=== PATIENT | female | born 1935 | race Caucasian/White ===

== ENCOUNTER 2021-06-03 02:43 | Inpatient (IN) | payer MEDICARE, OTHER ==
[~2021-06-03] VITALS: Ht 167.6 cm; Wt 54.4 kg
--- NOTE | 2021-06-03 02:54 | NUR ---
pt in room 5a came in by ra for fall at detention. Dr. Kebede at bedside for MSE.
[2021-06-03] MEDS ORDERED: TDAP DIPH,PERTUSS,TET VAC/PF 0.5 ML DISP.SYRIN IM ONE ×2 (03:15→03:18)
--- NOTE | 2021-06-03 04:02 | NUR ---
pt returned from cat scan.
--- NOTE | 2021-06-03 04:18 | NUR ---
Daughter of patient Kerri Fonseca called to check on status. Update given.
[2021-06-03 05:32] LABS: MEAN CORPUSCULAR HEMOGLOBIN 24.9 uug (24.7-32.8); MEAN CORPUSCULAR VOLUME 78.8 fL (75.5-95.3); PLATELET COUNT (AUTO) 203 K/uL (179-408)
[2021-06-03 05:54] LABS: HEMATOCRIT 20.1 % (31.2-41.9)
[2021-06-03 06:09] LABS: CREATININE 1.1 mg/dL (0.6-1.3); POTASSIUM 5.2 mmol/L (3.5-5.1)
[2021-06-03 06:15] LABS: BILIRUBIN,DIRECT 0.1 mg/dL (0.0-0.2); BILIRUBIN,TOTAL 0.4 mg/dL (0.2-1.0); TOTAL PROTEIN, SERUM 6.5 g/dL (6.4-8.2)
[2021-06-03 06:19] LABS: *OCCULT BLOOD STOOL NEGATIVE (NEGATIVE)
--- NOTE | 2021-06-03 06:59 | NUR ---
Call to Kerri Fonseca pt's daughter to give update. left vm.
--- NOTE | 2021-06-03 07:20 | NUR ---
pt's daughter talked to Dr. Diaz over the phone regarding pt plan of care including blood transfusion.
--- NOTE | 2021-06-03 08:00 | NUR ---
pt wheezing notified.
[2021-06-03] MEDS ORDERED: ALBUTEROL SULFATE 2.5 MG/3 ML NEBU NEB ONE (08:15)
[2021-06-03] MEDS ORDERED: METO25TA3 PO (08:36)
[2021-06-03] MEDS ORDERED: TELM80TA2 PO (08:36)
[2021-06-03] MEDS ORDERED: DOCU100C36 PO (08:36)
[2021-06-03] MEDS ORDERED: SENN-261 PO (08:36)
[2021-06-03] MEDS ORDERED: SERT50TA PO (08:36)
[2021-06-03] MEDS ORDERED: FURO-151 PO (08:36)
[2021-06-03] MEDS ORDERED: ASPI81TA31 PO (08:36)
[2021-06-03] MEDS ORDERED: SPIR25TA6 PO (08:36)
[2021-06-03] MEDS ORDERED: FERR325T28 PO (08:36)
[2021-06-03] MEDS ORDERED: FOLI1TAB94 PO (08:36)
[2021-06-03] MEDS ORDERED: PANT40TA49 PO (08:36)
[2021-06-03] MEDS ORDERED: ALBUTEROL SULFATE 2.5 MG/3 ML NEBU ONE (08:56)
--- NOTE | 2021-06-03 08:56 | NUR ---
am hygiene/comfort measure provided. break fast tray at bedside. pt eating with out difficulty.
--- NOTE | 2021-06-03 08:59 | NUR ---
pt accepted to tele, no bed available at this time. pt in er transition status.
[2021-06-03] MEDS ORDERED: NEOMY/BACITRA/POLYMYXIN B OINT UD PACKET TP ONE (09:01)
--- NOTE | 2021-06-03 09:35 | NUR ---
blood tranfusion started.
[2021-06-03] MEDS: NEOMY/BACITRAC/POLYMI OINT 28.35 GM TUBE TOP SCH (09:51)
--- NOTE | 2021-06-03 11:44 | NUR ---
PT'S DAUGHTER, JAVED MEDLEY, AT BEDSIDE, STATED THE FOLLOWING INFO: 1. JAVED HAS THE POWER OF ACCOUNT CONSULTANT AND IS ASKING TO BE NOTIFED BEFORE ANY INTERVENTION, IT COULD BE ANY TIME OF DAY, PHONE CALL OR TEXT MESSAGE, [phone]. 2. PT'S PMD IS DR. VIKI SALINAS, PT'S JAVA DEVELOPER WITH SECURITY CLEARANCE IS DR. SABILLON, PT'S GI IS DR. SHIKHA CHANDRA, [phone]. ALL PRACTICING AT [facility]. 3. PT HAS HAD EPISODES OF ANEMIA BEFORE AND ENDOSCOPY WAS PERFORMED AT [facility] IN MAY 06, INSIGNIFICANT FOR ANY BLEEDING, SIGNIFICANT FOR SPASM OF ESOPHAGEAL WHICH WAS TREATED WITH BOTOX INJECTIONS, WITH FOLLOW UP OF BOTOX INJECTION Q 6 MONTHS. 4. PT HAS HX OF HEMORRHOIDS. 5. PT HAS HAD RECENT INCONTINENCE AND LACK OF BALLANCE, THE LAST CT OF HEAD, PERFORMED MORE THAN 6 MONTHS AGO, DID NOT SHOW ANY HYDROCEPHALOUS FAR DAUGHTER REMEBERS.
--- NOTE | 2021-06-03 12:24 | NUR ---
BLOOD TRANSFUSION COMPLETED. PT TOLERATED WELL. NO REACTION.
--- NOTE | 2021-06-03 12:41 | NUR ---
HOSPITAL LUNCH [facility] PROVIDED FOR PT. Addendum: 06/03/21 at 1406 by GURWINDERMANSO pt did not eat, no apetite.
[2021-06-03] MEDS ORDERED: REMEDY ESSENTIAL ZINC PASTE 113 GM TP PRN (14:00)
[2021-06-03] MEDS ORDERED: ONDANSETRON 4 MG/2 ML VIAL IV PRN (14:00)
[2021-06-03] MEDS ORDERED: ACETAMINOPHEN 325 MG TABLET PO PRN (14:00)
--- NOTE | 2021-06-03 14:06 | NUR ---
pt getting agitated and uncomfortable, co headache and not feeling good. tylenol given will contact admitting for further orders.
[2021-06-03] MEDS ORDERED: ACETAMINOPHEN 325 MG TABLET ONE (14:11)
[2021-06-03] MEDS ORDERED: LORAZEPAM 2 MG/1 ML VIAL ONE (14:54)
[2021-06-03] MEDS: LORAZEPAM 2 MG/1 ML VIAL IV PRN (15:00)
--- NOTE | 2021-06-03 15:18 | NUR ---
PERINEAL HYGIENE PROVIDEDX 2 , NO BLOOD NOTICED.
--- NOTE | 2021-06-03 15:22 | NUR ---
PT'S DAUGHTER AT BEDSIDE. SHE SAID THAT SHE IS COMMUNICATING WITH DR. SALINAS, PT'S OWN PMD TO TRANSFER THE PT TO [facility] WHERE ALL THE PT'S DOCTORS ARE AND ARE FAMILIAR WITH THE PT HX.
--- NOTE | 2021-06-03 16:13 | NUR ---
DR. JORGE.PT'S PRIMARY MD, DR. SALINAS CALLED AND TALKED TO
--- NOTE | 2021-06-03 16:53 | NUR ---
PT RESTING, AROUSABLE.
--- NOTE | 2021-06-03 18:42 | NUR ---
pt transfered to floor in stable condition.
--- NOTE | 2021-06-03 18:58 | NUR ---
[facility] transfer center called and requested pt's clinical nad face sheet to be faxed to [phone], the number to transfer centrer is [phone]. Addendum: 06/03/21 at 1920 by FRANCISCO JAVIER faxed the requested info.
--- NOTE | 2021-06-03 20:12 | NUR ---
Received patient in bed asleep with O2 at 2LPM via Nc saturating well.Admitted to Tele unit from ER dx of symptomatic anemia.Iv on Rt shoulder patent and intact. Started IVF as ordered.Tolerated well.Fall precaution and safety measures in place.Call light with in reach. Will continue to monitor.Bed alarm on.
[2021-06-03 20:23] VITALS: BP 120/43
[2021-06-03] MEDS: IV NS 1000 ML 1,000 ML IV PRN (21:36)
[2021-06-04 00:22] VITALS: BP 100/46
[2021-06-04] MEDS: LORAZEPAM 2 MG/1 ML VIAL IV PRN ×2 (04:29→10:37)
--- NOTE | 2021-06-04 04:34 | NUR ---
Patient getting agitated.Pulled out her IV line and trying to removed her gown .Re-directed patient.Inserted new Iv line on right FA tolerated well.Ativan IVP given as ordered.Continue IVF .Will continue to monitor.
[2021-06-04 06:09] VITALS: BP 142/53
[2021-06-04 06:51] LABS: HEMATOCRIT 23.2 % (31.2-41.9); MEAN CORPUSCULAR VOLUME 80.6 fL (75.5-95.3); PLATELET COUNT (AUTO) 169 K/uL (179-408)
[2021-06-04] MEDS: PANTOPRAZOLE SODIUM 40 MG VIAL IV SCH (08:23)
[2021-06-04] MEDS: NEOMY/BACITRAC/POLYMI OINT 28.35 GM TUBE TOP SCH (08:24)
[2021-06-04 08:39] LABS: BILIRUBIN,TOTAL 0.7 mg/dL (0.2-1.0); CREATININE 0.9 mg/dL (0.6-1.3); MAGNESIUM 2.3 mg/dL (1.8-2.4); PHOSPHOROUS 3.8 mg/dL (2.5-4.9); POTASSIUM 4.7 mmol/L (3.5-5.1); TOTAL PROTEIN, SERUM 5.9 g/dL (6.4-8.2)
[2021-06-04 11:52] VITALS: BP 113/49
[2021-06-04] MEDS: ALBUTEROL SULFATE 2.5 MG/3 ML NEBU NEB PRN (15:24)
[2021-06-04 16:00] VITALS: BP 137/48
--- NOTE | 2021-06-04 16:00 | NUR ---
LUIS Roberson reminded to recon patient home meds
[2021-06-04 16:01] VITALS: BP 137/57
[2021-06-04] MEDS ORDERED: FUROSEMIDE 20 MG/2 ML VIAL IV ONE (16:15)
--- NOTE | 2021-06-04 19:03 | NUR ---
patient noted with wheezing, and congestion, however saturating at 98% at 2 liter o2, reported to SUPERVISOR WOUND Da, lasix and breathing tx given as ordered, with some effectiveness, continue to monitor, endorsed to next shift accordingly
--- NOTE | 2021-06-04 19:55 | NUR ---
Patient resting in bed comfortably.Asleep easily arousable. No s/s of distress.On O2 at 2LPm via NC.Iv patent and intact on right Fa.Continue safety measures.Will continue to monitor.
[2021-06-04 20:59] VITALS: BP 115/45
[2021-06-05 00:18] VITALS: BP 126/67
[2021-06-05] MEDS: IV NS 1000 ML 1,000 ML IV PRN (02:39)
[2021-06-05 04:06] VITALS: BP 122/46
[2021-06-05 05:32] LABS: HEMATOCRIT 21.8 % (31.2-41.9)
[2021-06-05 05:34] LABS: MEAN CORPUSCULAR HEMOGLOBIN 25.5 uug (24.7-32.8); MEAN CORPUSCULAR VOLUME 79.7 fL (75.5-95.3); PLATELET COUNT (AUTO) 162 K/uL (179-408)
[2021-06-05 05:42] LABS: CREATININE 0.7 mg/dL (0.6-1.3)
--- NOTE | 2021-06-05 06:24 | NUR ---
Patient in bed .Awake able to follow simple commands.No episodes of agitation .Noted HGb is trending down to 7.0 from 7.5 HCt. 21.8.MD Aguilera notified. Awaiting response.Will endorse to oncoming shift.
--- NOTE | 2021-06-05 07:20 | NUR ---
Received patient resting in bed. On 2L NC. No signs of acute distress. Patient denies pain/ discomfort. NSR on farmworker dairy. Bed alarm on. Call light within reach. Will continue to monitor.
[2021-06-05 08:22] VITALS: BP 130/41
[2021-06-05] MEDS: PANTOPRAZOLE SODIUM 40 MG VIAL IV SCH (09:02)
[2021-06-05] MEDS: NEOMY/BACITRAC/POLYMI OINT 28.35 GM TUBE TOP SCH (11:01)
[2021-06-05 12:38] VITALS: BP 143/46
[2021-06-05] MEDS ORDERED: FUROSEMIDE 40 MG/4 ML VIAL IV ONE (15:15)
[2021-06-05] MEDS: ALBUTEROL SULFATE 2.5 MG/3 ML NEBU NEB PRN (15:28)
[2021-06-05 16:14] VITALS: BP 142/42
[2021-06-05] MEDS: ASPIRIN 81 MG TAB.CHEW PO SCH (16:14)
[2021-06-05] MEDS: FERROUS SULFATE 325 MG TABEC PO SCH (16:14)
[2021-06-05] MEDS: SERTRALINE HCL 50 MG TABLET PO SCH (16:14)
[2021-06-05] MEDS: FOLIC ACID 1 MG TABLET PO SCH (16:16)
[2021-06-05] MEDS: METOPROLOL SUCCINATE XL 25 MG TAB.SR.24H PO SCH (17:57)
[2021-06-05] MEDS: DOCUSATE SODIUM 100 MG CAPSULE PO SCH (18:00)
[2021-06-05] MEDS: VALSARTAN 160 MG TABLET PO SCH (18:07)
--- NOTE | 2021-06-05 18:43 | NUR ---
Patient resting in bed. AOx3, confused at times. No signs of acute distress. Patient with audible wheezing, breathing treatment done. Compliant with medications and care. Kept clean and comfortable. NSR on finance intern. R UA midline, patent and intact. Needs anticipated and met. Bed alarm on for safety. Call light within reach. Will endorse to incoming shift for continuity of care.
[2021-06-05 20:00] VITALS: BP 123/45
--- NOTE | 2021-06-05 20:00 | NUR ---
Received patient lying in bed,resting comfortably. Easily aroused by name and light touch. Patient is AAOX2-3. Reoriented patient to date. Sinus rhythm on monitor. On 3L O2, NC saturating at 97%. Patient shows no signs of distress. IV access patent and intact. Safety precautions initiated. Bed in locked, bed alarm activated and call light button within reach. Will continue to monitor.
[2021-06-05] MEDS: SENNOSIDES 1 TABLET PO SCH (20:35)
[2021-06-05] MEDS: SPIRONOLACTONE 25 MG TABLET PO SCH (20:35)
[2021-06-06 00:15] VITALS: BP 137/45
--- NOTE | 2021-06-06 02:00 | NUR ---
Spoke to Rupali, from [facility] transfer desk, requested to confirm pt's financial clearance hasn't been finalized yet.
[2021-06-06 04:03] VITALS: BP 123/43
--- NOTE | 2021-06-06 05:16 | NUR ---
Patient slept intermittently through the night, with audible wheezing noted. Sinus rhythm on tele. On 3L O2, saturating at 94%. Patient shows no signs of chest pain or dizziness. IV access patent and intact. Compliant with medication regimen. All needs were attended to and met. Safety precautions maintained. Will endorse to day shift.
[2021-06-06] MEDS: PANTOPRAZOLE SODIUM 40 MG TABLET.DR PO SCH (05:59)
[2021-06-06] MEDS: DOCUSATE SODIUM 100 MG CAPSULE PO SCH ×2 (08:52→17:12)
[2021-06-06] MEDS: FERROUS SULFATE 325 MG TABEC PO SCH (08:52)
[2021-06-06] MEDS: SERTRALINE HCL 50 MG TABLET PO SCH (08:52)
[2021-06-06] MEDS: FOLIC ACID 1 MG TABLET PO SCH (08:52)
[2021-06-06] MEDS: ASPIRIN 81 MG TAB.CHEW PO SCH (08:53)
[2021-06-06] MEDS: NEOMY/BACITRAC/POLYMI OINT 28.35 GM TUBE TOP SCH (08:53)
[2021-06-06] MEDS: METOPROLOL SUCCINATE XL 25 MG TAB.SR.24H PO SCH (08:54)
[2021-06-06] MEDS: VALSARTAN 160 MG TABLET PO SCH (08:54)
[2021-06-06] MEDS ORDERED: FUROSEMIDE 40 MG TABLET PO SCH (09:00)
[2021-06-06] MEDS ORDERED: PANTOPRAZOLE SODIUM 40 MG TABLET.DR PO SCH (09:00)
[2021-06-06] MEDS ORDERED: Medication Not On Formulary EA (Telmisartan (Micardis) 80 MG) PO SCH (09:00)
[2021-06-06 11:27] VITALS: BP 110/48
--- NOTE | 2021-06-06 12:32 | NUR ---
CALL RECEIVED FROM PATIENTS DAUGHTER JAVED VERY UPSET STATED THAT SHE HAS NOT RECEIVED ANY INFORMATION REGARDING PLAN OF CARE WAS ABLE TO GIVE THE PLAN OF CARE TODAY AND REASSURED HER THAT THE LENS FABRICATING MACHINE TENDER AND DR NICHOLSON WILL CALL HER AND SHE CALMED DOWN AT THIS TIME
--- NOTE | 2021-06-06 12:58 | NUR ---
DR NICHOLSON SPOKE WITH PATIENTS DAUGHTER JAVED AT LENGTH AND THE PLAN IS THAT PATIENT WILL BE SEEN THE THE NEURO SURGEON AND AFTER THAT PATIENT WILL BE CLEARED FOR DISCHARGE OR IF THE DAUGHTER WILL PREFER SHE CAN COME IN NOW AND TAKE MOM AGAINST MEDICAL ADVISE AND SHE STATED WILL WAIT TO BE SEEN BY THE NEURO SURGEON.
[2021-06-06] MEDS: ENSURE ENLIVE (VAN) 240 ML LIQUID PO SCH ×2 (13:28→16:10)
[2021-06-06 14:44] LABS: HEMATOCRIT 36.3 % (31.2-41.9); MEAN CORPUSCULAR HEMOGLOBIN 30.8 uug (24.7-32.8); MEAN CORPUSCULAR VOLUME 93.9 fL (75.5-95.3); PLATELET COUNT (AUTO) 314 K/uL (179-408)
[2021-06-06 14:53] LABS: CARBON DIOXIDE 25 mmol/L (21-32); CHLORIDE 103 mmol/L (98-107); CREATININE 0.4 mg/dL (0.6-1.3); MAGNESIUM 1.6 mg/dL (1.8-2.4); PHOSPHOROUS 2.4 mg/dL (2.5-4.9); UREA NITROGEN, BLOOD 11 mg/dL (7-18)
[2021-06-06 15:00] LABS: GLUCOSE 335 mg/dL (74-106); POTASSIUM 2.7 mmol/L (3.5-5.1)
--- NOTE | 2021-06-06 15:11 | NUR ---
MAG LEVEL IS 1.6 POTASSIUM IS 2.7 PHOS LEVEL IS 2.4 AB[address] LEVELS RELAYED TO DR NICHOLSON WITH NEW ORDERS AND NOTED.
[2021-06-06 15:22] VITALS: BP 137/47
[2021-06-06] MEDS ORDERED: POTASSIUM CHLORIDE 20 MEQ TAB.PRT.SR PO ONE (16:00)
[2021-06-06] MEDS ORDERED: MAGNESIUM OXIDE 400 MG TABLET PO ONE (16:00)
[2021-06-06] MEDS ORDERED: NEUTRA PHOS PACKET PO ONE (16:00)
[2021-06-06] MEDS: POTASSIUM CHLORIDE 50 ML IV SCH ×4 (16:47→23:10)
--- NOTE | 2021-06-06 18:23 | NUR ---
PER WATER TAXI DRIVER PATIENT HAS EF OF 35-40 PERCENT WITH LARGE PLEURAL EFFUSSION DR NICHOLSON NOTIFIED.REMAIN ON O2 WITH NO SHORTNESS OF BREATH AT THIS TIME.
--- NOTE | 2021-06-06 19:30 | NUR ---
Received pt in no acute distress. IV intact. Pt on 3l nasal cannula. Safety and comfort provided. Will continue to monitor.
[2021-06-06 20:00] VITALS: BP 139/36
[2021-06-06] MEDS: SPIRONOLACTONE 25 MG TABLET PO SCH (20:12)
[2021-06-06] MEDS: SENNOSIDES 1 TABLET PO SCH (20:12)
[2021-06-07] VITALS: BP 135/45
[2021-06-07 04:00] VITALS: BP 125/46
--- NOTE | 2021-06-07 06:12 | NUR ---
Pt in no acute distress. Iv intact. Prescribed medication given and pt tolerated it well. Pt on sinus rhythm. Safety and comfort provided. All needs are met . Will endorse to incoming nurse for continuity of care.
[2021-06-07] MEDS: PANTOPRAZOLE SODIUM 40 MG TABLET.DR PO SCH (06:14)
[2021-06-07 06:28] LABS: HEMATOCRIT 26.4 % (31.2-41.9); MEAN CORPUSCULAR HEMOGLOBIN 25.2 uug (24.7-32.8); MEAN CORPUSCULAR VOLUME 79.9 fL (75.5-95.3); PLATELET COUNT (AUTO) 192 K/uL (179-408)
[2021-06-07 07:05] LABS: MAGNESIUM 2.5 mg/dL (1.8-2.4); PHOSPHOROUS 3.7 mg/dL (2.5-4.9); POTASSIUM 5.4 mmol/L (3.5-5.1)
--- NOTE | 2021-06-07 07:45 | NUR ---
RECEIVED PATIENT IN BED AWAKE CONFUSED AND DISORIENTED ALL NEEDS ANTICIPATED AND SATISFIED ON O2 AT 3L/M WITH NO SHORTNESS OF BREATH AT THIS TIME MID LINE LEFT UPPER ARM REMAIN INTACT WITH NO S/S OF INFILTERATION AT THIS TIME.ON ROOM AIR WITH NO SHORTNESS OF BREATH AT THIS TIME MADE COMFORTABLE WILL CONTINUE TO OBSERVE.
--- NOTE | 2021-06-07 08:17 | NUR ---
PATIENT SEEN AND EXAMINED BY DR STROUD WITH NEW ORDERS AND NOTED.
[2021-06-07] MEDS ORDERED: FUROSEMIDE 40 MG/4 ML VIAL IV ONE (08:30)
[2021-06-07] MEDS: ASPIRIN 81 MG TAB.CHEW PO SCH (09:51)
[2021-06-07] MEDS: METOPROLOL SUCCINATE XL 25 MG TAB.SR.24H PO SCH (09:52)
[2021-06-07] MEDS: FERROUS SULFATE 325 MG TABEC PO SCH (09:52)
[2021-06-07] MEDS: SERTRALINE HCL 50 MG TABLET PO SCH (09:52)
[2021-06-07] MEDS: DOCUSATE SODIUM 100 MG CAPSULE PO SCH ×2 (09:52→16:13)
[2021-06-07] MEDS: FOLIC ACID 1 MG TABLET PO SCH (09:52)
[2021-06-07] MEDS: NEOMY/BACITRAC/POLYMI OINT 28.35 GM TUBE TOP SCH (09:53)
[2021-06-07] MEDS: VALSARTAN 160 MG TABLET PO SCH (09:53)
[2021-06-07] MEDS: ENSURE ENLIVE (VAN) 240 ML LIQUID PO SCH ×2 (10:00→16:14)
--- NOTE | 2021-06-07 11:45 | NUR ---
PATIENT PULLED OUT HER MIDLINE ON HER LEFT UPPER ARM UNABLE TO RELAY WHY ITS OUT PATIENT IS A HARD STICK WILL NEED TO HAVE IT REPLACED MD AWARE WITH OKAY.
[2021-06-07 12:00] VITALS: BP 127/41
[2021-06-07 16:00] VITALS: BP 32/32
--- NOTE | 2021-06-07 18:00 | NUR ---
MID LINE REINSERTED TO HER LEFT UPPER ARM WITH 3 ATTEMPTS WRAPPED WITH COBAN AND KIRLIX MADE COMFORTABLE APPETITE REMAINS POOR AT THIS TIME WILL CONTINUE TO OBSERVE.
[2021-06-07 20:00] VITALS: BP 143/38
--- NOTE | 2021-06-07 20:00 | NUR ---
RECEIVED PATIENT AWAKE IN BED. A/O X2. VERY PLEASANT WHEN APPROACHED. NO C/O PAIN OR DISCOMFORT. NO RESP. DISTRESS OR SOB NOTED. ON O2 3L NC SATING 96%. ON TELE SR. MID-LINE NOTED TO LEFT UPPER ARM. BED ALARM ON. CALL LIGHT IN REACH. ALL NEEDS ATTENDED. WILL CONTINUE TO MONITOR AND ASSESS.
[2021-06-07] MEDS: SENNOSIDES 1 TABLET PO SCH (20:47)
[2021-06-07] MEDS: SPIRONOLACTONE 25 MG TABLET PO SCH (20:47)
[2021-06-08] VITALS: BP 134/42
[2021-06-08 04:00] VITALS: BP 133/34
--- NOTE | 2021-06-08 04:45 | NUR ---
RECEIVED CALL FROM MELANI AT [facility], CALLING TO NOTIFY THAT BED IS STILL NOT AVAILABLE. AVIONICS SHOP SUPERVISOR NOTIFIED.
--- NOTE | 2021-06-08 05:17 | NUR ---
PATIENT ASLEEP IN BED. SLEPT WELL THROUGHOUT THE NIGHT. VSS. NO S/S OF ANY PAIN OR DISCOMFORT. BED ALARM ON. CALL LIGHT IN REACH. ALL NEEDS ATTENDED. WILL CONTINUE TO MONITOR AND ASSESS. Addendum: 06/08/21 at 0518 by CARLENE BOWEN LVN ON TELE SR.
[2021-06-08] MEDS: PANTOPRAZOLE SODIUM 40 MG TABLET.DR PO SCH (06:10)
[2021-06-08 06:27] LABS: HEMATOCRIT 25.5 % (31.2-41.9); MEAN CORPUSCULAR HEMOGLOBIN 25.4 uug (24.7-32.8); MEAN CORPUSCULAR VOLUME 79.6 fL (75.5-95.3); PLATELET COUNT (AUTO) 184 K/uL (179-408)
[2021-06-08 06:54] LABS: BILIRUBIN,TOTAL 0.5 mg/dL (0.2-1.0); MAGNESIUM 2.5 mg/dL (1.8-2.4); POTASSIUM 5.1 mmol/L (3.5-5.1); TOTAL PROTEIN, SERUM 6.2 g/dL (6.4-8.2)
[2021-06-08 08:01] LABS: THYROID STIMULATING HORMONE 0.395 mIU/mL (0.358-3.740)
[2021-06-08] MEDS: DOCUSATE SODIUM 100 MG CAPSULE PO SCH ×2 (09:30→16:38)
[2021-06-08] MEDS: ASPIRIN 81 MG TAB.CHEW PO SCH (09:30)
[2021-06-08] MEDS: SERTRALINE HCL 50 MG TABLET PO SCH (09:30)
[2021-06-08] MEDS: FERROUS SULFATE 325 MG TABEC PO SCH (09:30)
[2021-06-08] MEDS: FOLIC ACID 1 MG TABLET PO SCH (09:30)
[2021-06-08] MEDS: ENSURE ENLIVE (VAN) 240 ML LIQUID PO SCH ×3 (09:31→16:39)
[2021-06-08] MEDS: VALSARTAN 160 MG TABLET PO SCH (09:31)
[2021-06-08] MEDS: METOPROLOL SUCCINATE XL 25 MG TAB.SR.24H PO SCH (09:32)
[2021-06-08] MEDS: NEOMY/BACITRAC/POLYMI OINT 28.35 GM TUBE TOP SCH (09:46)
[2021-06-08] MEDS ORDERED: FUROSEMIDE 40 MG TABLET PO SCH (10:15)
[2021-06-08] MEDS ORDERED: FUROSEMIDE 40 MG/4 ML VIAL IV ONE (11:00)
--- NOTE | 2021-06-08 11:13 | NUR ---
Pt is a/o x 2, discontinued telemetry per MD order. Pt is saturating 99% on 3L NC. Pt is pleasant. Pt's family still wants her to transfer to [facility] but no bed available. Comfort measures provided, call light within reach. No signs of acute distress. Will continue to monitor.
[2021-06-08 12:00] VITALS: BP 123/34
--- NOTE | 2021-06-08 13:00 | NUR ---
Pt was titrated from 3L to 2L NC, saturating 96- 98%
[2021-06-08] MEDS: SOD FERRIC GLUC COMPLX/SUCROSE 125 MG in IV NORMAL SALINE 100 ML IV SCH (14:48)
[2021-06-08 16:02] VITALS: BP_SYST 129; BP_SYST 136; BP_DIAS 39; BP_DIAS 68
--- NOTE | 2021-06-08 18:00 | NUR ---
Titrated pt from 2L to 1L NC, saturating at 94-96%. Pt saturates 90-89% on room air. Kept on 1L for comfort
[2021-06-08] MEDS: CEFEPIME HCL 2 G in IV DEXTROSE 5% 100 ML IV SCH (18:27)
--- NOTE | 2021-06-08 19:20 | NUR ---
Received pt resting in bed. A/O x 2, sometimes forgetful. HOB elevated. On 1L NC saturating at 94%. No signs of acute distress. MARIE midline intact, saline flushed, and patent. Safety measures initiated. Call lights within reach.
[2021-06-08] MEDS: SENNOSIDES 1 TABLET PO SCH (20:16)
[2021-06-08] MEDS: ACIDOPHILUS/BULGARICUS CHEW TAB PO SCH (20:16)
[2021-06-08 20:29] VITALS: BP 117/50
[2021-06-08 20:32] VITALS: BP 111/69
[2021-06-08] MEDS: SPIRONOLACTONE 25 MG TABLET PO SCH (21:00)
--- NOTE | 2021-06-08 21:45 | NUR ---
Held Spironolactone PO, BP 111/54. No signs of acute distress.
[2021-06-09 04:00] VITALS: BP 143/40
[2021-06-09] MEDS: CEFEPIME HCL 2 G in IV DEXTROSE 5% 100 ML IV SCH (05:09)
--- NOTE | 2021-06-09 05:20 | NUR ---
Slept well throughout the night. On 1L NC saturating at . Compliant with PM medications. Able to swallow whole pills. IV Cefepime HCL ABX given, tolerated. MARIE midline intact, heplock. No signs of acute distress. Needs have been met. Call lights within reach. safety measures maintained. Will endorse to am shift
[2021-06-09] MEDS: PANTOPRAZOLE SODIUM 40 MG TABLET.DR PO SCH (06:31)
[2021-06-09 07:13] LABS: CREATININE 0.8 mg/dL (0.6-1.3); MAGNESIUM 2.2 mg/dL (1.8-2.4); PHOSPHOROUS 3.9 mg/dL (2.5-4.9)
[2021-06-09 07:17] LABS: HEMATOCRIT 25.7 % (31.2-41.9); MEAN CORPUSCULAR HEMOGLOBIN 25.3 uug (24.7-32.8); MEAN CORPUSCULAR VOLUME 79.5 fL (75.5-95.3); PLATELET COUNT (AUTO) 177 K/uL (179-408)
[2021-06-09] MEDS: FERROUS SULFATE 325 MG TABEC PO SCH (08:14)
[2021-06-09] MEDS: DOCUSATE SODIUM 100 MG CAPSULE PO SCH ×2 (08:14→16:08)
[2021-06-09] MEDS: FOLIC ACID 1 MG TABLET PO SCH (08:14)
[2021-06-09] MEDS: SERTRALINE HCL 50 MG TABLET PO SCH (08:14)
[2021-06-09] MEDS: METOPROLOL SUCCINATE XL 25 MG TAB.SR.24H PO SCH (08:14)
[2021-06-09] MEDS: ACIDOPHILUS/BULGARICUS CHEW TAB PO SCH (08:14)
[2021-06-09] MEDS: ASPIRIN 81 MG TAB.CHEW PO SCH (08:14)
[2021-06-09] MEDS: VALSARTAN 160 MG TABLET PO SCH (08:14)
[2021-06-09] MEDS: ENSURE ENLIVE (VAN) 240 ML LIQUID PO SCH ×3 (08:15→16:08)
[2021-06-09] MEDS: NEOMY/BACITRAC/POLYMI OINT 28.35 GM TUBE TOP SCH (08:15)
[2021-06-09] MEDS ORDERED: FUROSEMIDE 40 MG TABLET PO SCH (09:00)
[2021-06-09 11:50] VITALS: BP 112/62
[2021-06-09] MEDS: SOD FERRIC GLUC COMPLX/SUCROSE 125 MG in IV NORMAL SALINE 100 ML IV SCH (15:00)
[2021-06-09 16:08] VITALS: BP 118/68
[2021-06-09] MEDS ORDERED: ASPI-618 PO (18:26)
[2021-06-09] MEDS ORDERED: ACID1TAB4 PO (18:26)
--- NOTE | 2021-06-09 18:39 | NUR ---
dc orders received noted and carried out,dc midline per md orders,pt daughter notified about the dc ,pt left the facility via ambulances in stable condition
== END 2021-06-09 18:41 | DRG 811 ==
LOC: ER 02:53 → TRANSITION 08:58 → TELE3 18:33 → MEDSURG3 06-08 11:04
PROVIDERS: ADMIT Hospitalist; ATTEND Internal Medicine
PROC: 30233N1 Transfusion of Nonautologous Red Blood Cells into Peripheral Vein, Percutaneous Approach (ICD-10-PCS; principal; 2021-06-03)
PROC: 05H633Z Insertion of Infusion Device into Left Subclavian Vein, Percutaneous Approach (ICD-10-PCS; 2021-06-05)
PROC: B547ZZA Ultrasonography of Left Subclavian Vein, Guidance (ICD-10-PCS; 2021-06-05)
PROC: 05H533Z Insertion of Infusion Device into Right Subclavian Vein, Percutaneous Approach (ICD-10-PCS; 2021-06-07)
PROC: B546ZZA Ultrasonography of Right Subclavian Vein, Guidance (ICD-10-PCS; 2021-06-07)
PROC: 05HC33Z Insertion of Infusion Device into Left Basilic Vein, Percutaneous Approach (ICD-10-PCS; 2021-06-07)
PROC: B54NZZA Ultrasonography of Left Upper Extremity Veins, Guidance (ICD-10-PCS; 2021-06-07)
PROC: 0W9B3ZZ Drainage of Left Pleural Cavity, Percutaneous Approach (ICD-10-PCS; 2021-06-09)
DX: D46.9 Myelodysplastic syndrome, unspecified (principal); I50.43 Acute on chronic combined systolic (congestive) and diastolic (congestive) heart failure; E44.0 Moderate protein-calorie malnutrition; Z68.1 Body mass index [BMI] 19.9 or less, adult; G91.2 (Idiopathic) normal pressure hydrocephalus; J91.8 Pleural effusion in other conditions classified elsewhere; N17.9 Acute kidney failure, unspecified; I11.0 Hypertensive heart disease with heart failure; W01.0XXA Fall on same level from slipping, tripping and stumbling without subsequent striking against object, initial encounter; S00.81XA Abrasion of other part of head, initial encounter; Y92.099 Unspecified place in other non-institutional residence as the place of occurrence of the external cause; E87.5 Hyperkalemia; F32.A Depression, unspecified; E03.9 Hypothyroidism, unspecified; E88.09 Other disorders of plasma-protein metabolism, not elsewhere classified; Z20.822 Contact with and (suspected) exposure to COVID-19; Z86.73 Personal history of transient ischemic attack (TIA), and cerebral infarction without residual deficits; F01.50 Vascular dementia, unspecified severity, without behavioral disturbance, psychotic disturbance, mood disturbance, and anxiety; I08.3 Combined rheumatic disorders of mitral, aortic and tricuspid valves; Z87.01 Personal history of pneumonia (recurrent); G93.89 Other specified disorders of brain; K22.2 Esophageal obstruction; Z95.2 Presence of prosthetic heart valve
CPT/HCPCS: 32555; 36415; 70030-TC; 70450; 71045; 82378; 83550; 83735; 84100; 84443; 85025; 85610; 86140; 86850; 86900; 86901; 86920; 87040; 90715; 93307; 94640; 97161; A4663; A6209; C9113; G0378; J0692; J1940; J2060; J2916; J3480; J3490; J7030; J7050; J7060; P9016

== ENCOUNTER 2021-06-19 19:41 | Inpatient (IN) | payer MEDICARE, OTHER ==
[~2021-06-19] VITALS: Ht 157.5 cm; Wt 50.8 kg
[~2021-06-19 19:41] MED LIST: ACID1TAB4 PO; ASPI-618 PO; DOCU100C36 PO; FERR325T28 PO; FOLI1TAB94 PO; FURO-151 PO; METO25TA3 PO; PANT40TA49 PO; SENN-261 PO; SERT50TA PO; SPIR25TA6 PO; TELM80TA2 PO
--- NOTE | 2021-06-19 20:20 | NUR ---
Pt had BM soft and partially formed brown stool. Pt cleaned, pericare provided and gurney linen changed. Pt is clean and dry an in pos of comfort. Pt straight cathed and UA specimen collected without difficulty. Pt tolerated well with minimal discomfort.
--- NOTE | 2021-06-19 20:35 | NUR ---
PT IS IN ROOM #2A. DR OVERTON EVALUATED THE PT,
[2021-06-19 20:46] LABS: HEMATOCRIT 33.1 % (31.2-41.9); MEAN CORPUSCULAR HEMOGLOBIN 24.8 uug (24.7-32.8); MEAN CORPUSCULAR VOLUME 79.6 fL (75.5-95.3); PLATELET COUNT (AUTO) 213 K/uL (179-408)
[2021-06-19 20:55] LABS: CREATININE 0.9 mg/dL (0.6-1.3); POTASSIUM 3.7 mmol/L (3.5-5.1)
--- NOTE | 2021-06-19 21:00 | NUR ---
Pt is resting comfortably, VSS no signs of distress present. pt is patiently awaiting room assignment and transfer to 3rd floor.
[2021-06-19 21:01] LABS: BILIRUBIN,DIRECT 0.2 mg/dL (0.0-0.2); BILIRUBIN,TOTAL 0.6 mg/dL (0.2-1.0); TOTAL PROTEIN, SERUM 7.6 g/dL (6.4-8.2)
[2021-06-19 21:41] LABS: MAGNESIUM 2.1 mg/dL (1.8-2.4)
[2021-06-19 22:16] LABS: *BILIRUBIN,URIN 1+ (NEGATIVE); *COLOR,URINE YELLOW (YELLOW); *KETONES,URINE 1+ (NEGATIVE); *UROBILINOGEN,URINE 0.2 E.U./dl (NORMAL); LEUKOCYTE ESTERASE ,URINE NEGATIVE (NEGATIVE); NITRITE, URINE NEGATIVE (NEGATIVE); PH,URINE 5.5 (5.0-8.0); UGLUCOSE NEGATIVE (NEGATIVE)
[2021-06-19 22:17] LABS: *BLOOD, URINE TRACE (NEGATIVE); *CLARITY,URINE HAZY (CLEAR)
--- NOTE | 2021-06-19 22:20 | NUR ---
call placed to Dr. [facility] for Dr. Tenroio to speak with him.
[2021-06-19 22:23] LABS: BACTERIA,URINE NONE SEEN /HPF (NONE SEEN); RBC,URINE 20-50 /HPF (0-3); SQUAMOUS EPITHELIAL CELL,UR NONE SEEN /HPF (NONE SEEN); WBC,URINE 0-3 /HPF (0-3)
--- NOTE | 2021-06-19 22:30 | NUR ---
Ladarius front office secretary for
[2021-06-19] MEDS ORDERED: CEFTRIAXONE 1 G in IV DEXTROSE 5% 50 ML IV ONE (23:00)
[2021-06-19] MEDS ORDERED: AZITHROMYCIN IV 500 MG in IV DEXTROSE 5% 250 ML IV ONE (23:00)
[2021-06-19] MEDS ORDERED: NITROGLYCERIN 0.4 MG/TAB BOTTLE SL PRN (23:00)
--- NOTE | 2021-06-19 23:15 | NUR ---
Received report from MECHANICAL SYSTEMS ENGINEERDEE Warner for pending admission to Med Surg.
--- NOTE | 2021-06-19 23:19 | NUR ---
Just gave thorough report to teleRN Betzaida using SBAR method. Got green light to push pt, will be tranporting her now. Pt blessing, VSS, aaox3.
[2021-06-19] MEDS ORDERED: CEFTRIAXONE /D5W 50ML IVPB **ER PYXIS IV ONE (23:48)
[2021-06-19] MEDS ORDERED: AZITHROMYCIN 500MG/ D5W 250ML IVPB **ER PYXIS ONLY IV ONE (23:52)
--- NOTE | 2021-06-20 00:05 | NUR ---
Pt tranported to 316 without incident or difficulty
--- NOTE | 2021-06-20 00:15 | NUR ---
Patient admitted to [facility]. Patient is alert to self and place, unable to answer further questions. Patient is estonian speaking. Denies any pain or discomfort. Multiple skin impairments noted, pictures taken. On 2L 02 via NC, no SOB. Left hand #20 gauge SL noted, patent and intact. Safety measures initiated. Call light within reach.
[2021-06-20] MEDS: ENOXAPARIN SODIUM 40 MG/0.4 ML DISP.SYRIN SQ SCH ×2 (00:32→20:40)
[2021-06-20 00:53] VITALS: BP 187/51
[2021-06-20 02:43] VITALS: BP 170/56
[2021-06-20 04:51] VITALS: BP 156/44
--- NOTE | 2021-06-20 05:36 | NUR ---
No significant events this shift. Patient slept well, Azithromycin IV provided as ordered via left hand IV, no adverse reaction. Denies any pain or discomfort. Call light within reach.
[2021-06-20] MEDS: PANTOPRAZOLE SODIUM 40 MG TABLET.DR PO SCH (06:00)
[2021-06-20 06:25] LABS: HEMATOCRIT 31.9 % (31.2-41.9); MEAN CORPUSCULAR HEMOGLOBIN 25.6 uug (24.7-32.8); MEAN CORPUSCULAR VOLUME 79.3 fL (75.5-95.3); PLATELET COUNT (AUTO) 233 K/uL (179-408)
[2021-06-20 06:36] LABS: CREATININE 0.8 mg/dL (0.6-1.3); POTASSIUM 3.5 mmol/L (3.5-5.1)
[2021-06-20 06:51] LABS: BILIRUBIN,TOTAL 0.5 mg/dL (0.2-1.0); TOTAL PROTEIN, SERUM 7.5 g/dL (6.4-8.2)
[2021-06-20 07:03] LABS: THYROID STIMULATING HORMONE 0.029 mIU/mL (0.358-3.740)
[2021-06-20] MEDS: LOSARTAN POTASSIUM 50 MG TABLET PO SCH (08:34)
[2021-06-20] MEDS: FERROUS SULFATE 325 MG TABEC PO SCH (08:35)
[2021-06-20] MEDS: FOLIC ACID 1 MG TABLET PO SCH (08:36)
[2021-06-20] MEDS: ASPIRIN EC 81 MG TABLET.DR PO SCH (08:36)
[2021-06-20] MEDS: SERTRALINE HCL 50 MG TABLET PO SCH (08:36)
[2021-06-20] MEDS: ACIDOPHILUS/BULGARICUS CHEW TAB PO SCH ×2 (08:36→20:36)
[2021-06-20] MEDS: DOCUSATE SODIUM 100 MG CAPSULE PO SCH ×2 (08:36→17:48)
[2021-06-20] MEDS: METOPROLOL SUCCINATE XL 25 MG TAB.SR.24H PO SCH (08:37)
[2021-06-20] MEDS ORDERED: FUROSEMIDE 40 MG/4 ML VIAL IVP SCH (09:00)
[2021-06-20 11:48] VITALS: BP 174/59
[2021-06-20] MEDS ORDERED: DONE5TAB34 PO (11:54)
--- NOTE | 2021-06-20 12:08 | NUR ---
patient noted with elevated bp at 174/59, Janet made aware with new order for hydralazine 10 mg iv q6hrs prn to keep sbp<160 noted and carried out.
[2021-06-20] MEDS: hydrALAZINE HCL 20 MG/1 ML VIAL IV PRN (12:32)
[2021-06-20 15:56] VITALS: BP 172/53
[2021-06-20 20:17] VITALS: BP 159/53
[2021-06-20] MEDS: SENNOSIDES 1 TABLET PO SCH (20:36)
[2021-06-20] MEDS: SPIRONOLACTONE 25 MG TABLET PO SCH (20:36)
[2021-06-20] MEDS ORDERED: CEFTRIAXONE 1 G in IV DEXTROSE 5% 50 ML IV SCH (23:00)
[2021-06-21 04:18] VITALS: BP 115/58
--- NOTE | 2021-06-21 06:00 | NUR ---
PATIENT AWAKE IN BED. C/O HEADACHE. CALLED OUT TO ASIYA PATEL NP REMOTE MORTGAGE UNDERWRITER FOR TYLENOL ORDERS. RECHECKED PATIENTS BLOOD PRESSURE AND RECEIVED 176/55. NOTIFIED ASIYA, RECEIVED ORDER FOR HYDRALAZINE 10MG PO X1. PATIENT IS MED-SURG STATUS. NOTIFIED MD THAT PATIENT IS A VERY HARD STICK AND UNABLE TO START IV AT THIS TIME.
[2021-06-21] MEDS ORDERED: hydrALAZINE HCL 10 MG TABLET PO ONE (06:07)
[2021-06-21] MEDS: PANTOPRAZOLE SODIUM 40 MG TABLET.DR PO SCH (06:10)
[2021-06-21] MEDS: ACETAMINOPHEN 325 MG TABLET PO PRN ×2 (06:11→18:11)
--- NOTE | 2021-06-21 06:25 | NUR ---
PATIENT GIVEN TYLENOL 650MG PO PRN AND HYDRALAZINE 10MG PO PRN FOR ELEVATED BP. PATIENT ON O2 2L NC. BED ALARM ON, CALL LIGHT IN REACH. ALL NEEDS ATTENDED, WILL CONTINUE TO MONITOR AND ASSESS.
[2021-06-21 06:33] LABS: HEMATOCRIT 33.8 % (31.2-41.9); MEAN CORPUSCULAR VOLUME 78.9 fL (75.5-95.3); PLATELET COUNT (AUTO) 273 K/uL (179-408)
[2021-06-21 06:43] LABS: CREATININE 0.7 mg/dL (0.6-1.3); MAGNESIUM 2.3 mg/dL (1.8-2.4); PHOSPHOROUS 3.8 mg/dL (2.5-4.9); POTASSIUM 3.2 mmol/L (3.5-5.1)
[2021-06-21] MEDS ORDERED: POTASSIUM CHLORIDE 20 MEQ POWDER PACKET GT ONE (08:00)
[2021-06-21] MEDS ORDERED: POTASSIUM CHLORIDE 20 MEQ TAB.PRT.SR PO ONE (08:15)
[2021-06-21] MEDS: FOLIC ACID 1 MG TABLET PO SCH (08:35)
[2021-06-21] MEDS: FUROSEMIDE 40 MG TABLET PO SCH (08:35)
[2021-06-21] MEDS: ACIDOPHILUS/BULGARICUS CHEW TAB PO SCH ×2 (08:35→20:06)
[2021-06-21] MEDS: DOCUSATE SODIUM 100 MG CAPSULE PO SCH ×2 (08:35→16:34)
[2021-06-21] MEDS: DONEPEZIL 5 MG TABLET PO SCH (08:35)
[2021-06-21] MEDS: SERTRALINE HCL 50 MG TABLET PO SCH (08:35)
[2021-06-21] MEDS: FERROUS SULFATE 325 MG TABEC PO SCH (08:36)
[2021-06-21] MEDS: ASPIRIN EC 81 MG TABLET.DR PO SCH (08:36)
[2021-06-21] MEDS: LOSARTAN POTASSIUM 50 MG TABLET PO SCH (08:41)
[2021-06-21] MEDS: METOPROLOL SUCCINATE XL 25 MG TAB.SR.24H PO SCH (08:42)
[2021-06-21] MEDS ORDERED: AZITHROMYCIN IV 500 MG in IV DEXTROSE 5% 250 ML IV SCH (09:30)
[2021-06-21] MEDS ORDERED: CEFTRIAXONE 1 G in IV DEXTROSE 5% 50 ML IV SCH (10:00)
[2021-06-21 11:46] VITALS: BP 152/55
[2021-06-21] MEDS: PIPERACILLIN SODIUM/TAZOBACTAM 3.375 G in IV DEXTROSE 5% 100 ML IV SCH ×2 (12:54→20:03)
--- NOTE | 2021-06-21 13:00 | NUR ---
PATIENT AWAKE RESTING IN BED. AAOX3 GREEK AND URDU SPEAKING. O2 VIA N/C 2 LITERS KADI WELL O2 SAT 96% CHECKED PATIENTS BLOOD PRESSURE AT 084 =168/70 MEDICATED WITH B/P MEDS ORDERED PT ORDER FOR ROCEPHIN WAS D/C.AND NEW ORDER FOR ZOSYN START IV AT RFA G #22 AT THIS TIME PT NOTED WITH POOR APPETITE WILL CONTINUE TO MONITOR FOR COMFORT AND SAFETY.
[2021-06-21 16:00] VITALS: BP 169/59
[2021-06-21 18:20] VITALS: BP 154/49
[2021-06-21 20:00] VITALS: BP 165/51
[2021-06-21] MEDS: SPIRONOLACTONE 25 MG TABLET PO SCH (20:06)
[2021-06-21] MEDS: SENNOSIDES 1 TABLET PO SCH (20:06)
[2021-06-21] MEDS: ENOXAPARIN SODIUM 40 MG/0.4 ML DISP.SYRIN SQ SCH (20:15)
[2021-06-21] MEDS: hydrALAZINE HCL 20 MG/1 ML VIAL IV PRN (23:18)
[2021-06-22 04:00] VITALS: BP 139/50
[2021-06-22] MEDS: PIPERACILLIN SODIUM/TAZOBACTAM 3.375 G in IV DEXTROSE 5% 100 ML IV SCH ×3 (04:05→20:10)
--- NOTE | 2021-06-22 04:55 | NUR ---
Patient awake alert and able to make needs known, noted with facial grimaces however patient denies pain or discomfort. Hasn't voided .Bladder scan with 320 ml. Md Jj notified with new order given noted and carried out. Hurst catheter fr 18 inserted .Tolerated well with 250 ml clear urine output.No hematuria or sediments.Afebrile throughout the shift. VSS.
[2021-06-22] MEDS: PANTOPRAZOLE SODIUM 40 MG TABLET.DR PO SCH (06:41)
[2021-06-22 07:22] LABS: HEMATOCRIT 32.9 % (31.2-41.9); MEAN CORPUSCULAR HEMOGLOBIN 25.2 uug (24.7-32.8); MEAN CORPUSCULAR VOLUME 80.2 fL (75.5-95.3); PLATELET COUNT (AUTO) 201 K/uL (179-408)
[2021-06-22 08:13] LABS: BILIRUBIN,TOTAL 0.6 mg/dL (0.2-1.0); CREATININE 0.7 mg/dL (0.6-1.3); MAGNESIUM 2.2 mg/dL (1.8-2.4); PHOSPHOROUS 2.9 mg/dL (2.5-4.9); POTASSIUM 4.3 mmol/L (3.5-5.1)
[2021-06-22 08:21] LABS: THYROID STIMULATING HORMONE 0.012 mIU/mL (0.358-3.740)
[2021-06-22] MEDS: DONEPEZIL 5 MG TABLET PO SCH (08:24)
[2021-06-22] MEDS: DOCUSATE SODIUM 100 MG CAPSULE PO SCH ×2 (08:24→16:57)
[2021-06-22] MEDS: FERROUS SULFATE 325 MG TABEC PO SCH (08:24)
[2021-06-22] MEDS: ASPIRIN EC 81 MG TABLET.DR PO SCH (08:24)
[2021-06-22] MEDS: ACIDOPHILUS/BULGARICUS CHEW TAB PO SCH ×2 (08:24→20:11)
[2021-06-22] MEDS: FOLIC ACID 1 MG TABLET PO SCH (08:24)
[2021-06-22] MEDS: FUROSEMIDE 40 MG TABLET PO SCH (08:24)
[2021-06-22] MEDS: SERTRALINE HCL 50 MG TABLET PO SCH (08:24)
[2021-06-22] MEDS: METOPROLOL SUCCINATE XL 50 MG TAB.SR.24H PO SCH (08:30)
[2021-06-22] MEDS: LOSARTAN POTASSIUM 50 MG TABLET PO SCH (08:33)
[2021-06-22] MEDS ORDERED: METHIMAZOLE 5 MG TABLET PO SCH (09:00)
[2021-06-22 12:00] VITALS: BP 119/48
[2021-06-22 16:00] VITALS: BP 128/46
[2021-06-22] MEDS: ENSURE ENLIVE (VAN) 240 ML LIQUID PO SCH (16:58)
[2021-06-22 20:00] VITALS: BP 93/27
[2021-06-22] MEDS: SENNOSIDES 1 TABLET PO SCH (20:11)
[2021-06-22] MEDS: SPIRONOLACTONE 25 MG TABLET PO SCH (20:12)
[2021-06-22] MEDS: ENOXAPARIN SODIUM 40 MG/0.4 ML DISP.SYRIN SQ SCH (20:15)
--- NOTE | 2021-06-22 21:32 | NUR ---
Patient awake and able to make needs known.Denies pain. No s/s of distress noted.BP 93/27 .Asymptomatic .Positioned patient in Trendelenburg.Rechecked BP remained in 90s /30s .YARDING SUPERVISOR Epifanio made aware.NNO at this time. Will continue to monitor.
[2021-06-22 22:00] VITALS: BP 117/48
[2021-06-23] MEDS: PIPERACILLIN SODIUM/TAZOBACTAM 3.375 G in IV DEXTROSE 5% 100 ML IV SCH ×2 (04:29→12:00)
[2021-06-23 04:40] VITALS: BP 105/50
[2021-06-23] MEDS: PANTOPRAZOLE SODIUM 40 MG TABLET.DR PO SCH (06:02)
[2021-06-23 06:24] LABS: HEMATOCRIT 31.2 % (31.2-41.9); MEAN CORPUSCULAR HEMOGLOBIN 25.6 uug (24.7-32.8); MEAN CORPUSCULAR VOLUME 80.5 fL (75.5-95.3); PLATELET COUNT (AUTO) 175 K/uL (179-408)
[2021-06-23 06:54] LABS: MAGNESIUM 2.2 mg/dL (1.8-2.4); PHOSPHOROUS 3.3 mg/dL (2.5-4.9); POTASSIUM 3.7 mmol/L (3.5-5.1)
[2021-06-23] MEDS: FERROUS SULFATE 325 MG TABEC PO SCH (08:47)
[2021-06-23] MEDS: DONEPEZIL 5 MG TABLET PO SCH (08:47)
[2021-06-23] MEDS: DOCUSATE SODIUM 100 MG CAPSULE PO SCH ×2 (08:47→16:18)
[2021-06-23] MEDS: ASPIRIN EC 81 MG TABLET.DR PO SCH (08:47)
[2021-06-23] MEDS: ACIDOPHILUS/BULGARICUS CHEW TAB PO SCH (08:47)
[2021-06-23] MEDS: FOLIC ACID 1 MG TABLET PO SCH (08:47)
[2021-06-23] MEDS: SERTRALINE HCL 50 MG TABLET PO SCH (08:48)
[2021-06-23] MEDS: METOPROLOL SUCCINATE XL 50 MG TAB.SR.24H PO SCH (08:53)
[2021-06-23] MEDS: LOSARTAN POTASSIUM 50 MG TABLET PO SCH (08:53)
[2021-06-23] MEDS: ENSURE ENLIVE (VAN) 240 ML LIQUID PO SCH ×3 (08:53→17:42)
[2021-06-23] MEDS ORDERED: FUROSEMIDE 20 MG TABLET PO SCH (09:00)
[2021-06-23 13:06] VITALS: BP 96/34
[2021-06-23 14:04] LABS: THYROID STIMULATING HORMONE 0.049 mIU/mL (0.358-3.740)
[2021-06-23 16:18] VITALS: BP 105/39
--- NOTE | 2021-06-23 17:33 | NUR ---
Patient discharged to [facility]. Patient resting in bed. AOx1-2. Able to make needs known. On room air. No signs of acute distress. Patient denies pain/ discomfort at this time. Hurst catheter draining yellow, clear urine. Discharge paperwork in chart.
[2021-06-23] MEDS ORDERED: PIPE3.379 IV (18:30)
[2021-06-23] MEDS ORDERED: FURO20TA4 PO (19:06)
[2021-06-23] MEDS ORDERED: METO-358 PO (19:06)
[2021-06-23] MEDS ORDERED: LOSA100T31 PO (19:11)
[2021-06-23] MEDS ORDERED: NITR0.4T48 SL (19:11)
[2021-06-23] MEDS ORDERED: ACET-2154 PO (19:11)
[2021-06-23] MEDS ORDERED: LACT-246 PO (19:11)
[2021-06-23] MEDS ORDERED: ENOX40DI SQ (19:11)
[2021-06-23] MEDS ORDERED: ACID1TAB12 PO (19:13)
== END 2021-06-23 17:42 | DRG 177 ==
LOC: ER 19:45 → TELE3 23:44 → MEDSURG3 06-20 00:11
PROVIDERS: ADMIT Registered Nurse; ATTEND Internal Medicine
DX: J69.0 Pneumonitis due to inhalation of food and vomit (principal); I50.43 Acute on chronic combined systolic (congestive) and diastolic (congestive) heart failure; E44.0 Moderate protein-calorie malnutrition; G91.2 (Idiopathic) normal pressure hydrocephalus; I11.0 Hypertensive heart disease with heart failure; E03.9 Hypothyroidism, unspecified; Z79.82 Long term (current) use of aspirin; Z86.73 Personal history of transient ischemic attack (TIA), and cerebral infarction without residual deficits; Z95.2 Presence of prosthetic heart valve; R53.1 Weakness; Z20.822 Contact with and (suspected) exposure to COVID-19; Z91.81 History of falling; E88.09 Other disorders of plasma-protein metabolism, not elsewhere classified; E87.6 Hypokalemia; F03.90 Unspecified dementia, unspecified severity, without behavioral disturbance, psychotic disturbance, mood disturbance, and anxiety; F32.A Depression, unspecified; Z79.899 Other long term (current) drug therapy; I08.2 Rheumatic disorders of both aortic and tricuspid valves; F01.50 Vascular dementia, unspecified severity, without behavioral disturbance, psychotic disturbance, mood disturbance, and anxiety; D50.9 Iron deficiency anemia, unspecified; D46.9 Myelodysplastic syndrome, unspecified; G93.89 Other specified disorders of brain; Z74.09 Other reduced mobility; Z87.01 Personal history of pneumonia (recurrent); E04.1 Nontoxic single thyroid nodule; Z68.20 Body mass index [BMI] 20.0-20.9, adult
CPT/HCPCS: 36415; 70030-TC; 71045; 83735; 84100; 84443; 84481; 85025; 87040; 87086; 93005; 97161; A4663; G0378; J0360; J0456; J0696; J1650; J1940; J2543; J7030; J7040; J7060

== ENCOUNTER 2021-06-23 18:11 | Inpatient (IN) | payer MEDICARE, OTHER ==
[~2021-06-23] VITALS: Ht 157.5 cm; Wt 49.1 kg
[~2021-06-23 18:11] MED LIST changes: +DONE5TAB34 PO
[2021-06-23] MEDS ORDERED: PIPE3.379 IV (18:30)
--- NOTE | 2021-06-23 18:40 | NUR ---
Admitted patient from [facility] unit. Patient AOx1-2. On room air. No signs of acute distress. IV access patent and intact. Hurst catheter draining clear, yellow urine. Call light within reach. Bed alarm on for safety. Will continue to monitor.
[2021-06-23] MEDS ORDERED: FURO20TA4 PO (19:06)
[2021-06-23] MEDS ORDERED: METO-358 PO (19:06)
[2021-06-23] MEDS ORDERED: ENOX40DI SQ (19:11)
[2021-06-23] MEDS ORDERED: NITR0.4T48 SL (19:11)
[2021-06-23] MEDS ORDERED: LOSA100T31 PO (19:11)
[2021-06-23] MEDS ORDERED: LACT-246 PO (19:11)
[2021-06-23] MEDS ORDERED: ACET-2154 PO (19:11)
[2021-06-23] MEDS ORDERED: ACID1TAB12 PO (19:13)
[2021-06-23 20:00] VITALS: BP 103/30
[2021-06-23] MEDS: SPIRONOLACTONE 25 MG TABLET PO SCH (21:00)
[2021-06-23] MEDS ORDERED: ACETAMINOPHEN 325 MG TABLET PO PRN (21:00)
[2021-06-23] MEDS ORDERED: NITROGLYCERIN 0.4 MG/TAB BOTTLE SL PRN (21:00)
[2021-06-23] MEDS: SENNOSIDES 1 TABLET PO SCH (21:15)
[2021-06-23] MEDS: ACIDOPHILUS/BULGARICUS CHEW TAB PO SCH (21:16)
[2021-06-23] MEDS: PIPERACILLIN SODIUM/TAZOBACTAM 3.375 G in IV DEXTROSE 5% 100 ML IV SCH (21:16)
[2021-06-23] MEDS ORDERED: PIPERACILLIN SODIUM/TAZOBACTAM 3.375 G in IV DEXTROSE 5% 50 ML IV SCH (22:00)
[2021-06-24 04:00] VITALS: BP 121/36
[2021-06-24] MEDS: PIPERACILLIN SODIUM/TAZOBACTAM 3.375 G in IV DEXTROSE 5% 100 ML IV SCH ×2 (05:04→15:18)
--- NOTE | 2021-06-24 05:49 | NUR ---
Slept throughout the night, easily arousable for care. IV line on R hand G#22 patent and intact, due medication given and tolerated well. Denies pain and discomfort. Hurst catheter also patent and draining well with yellowish urine. MRSA swab refused and verbalized "not now." All needs attended. Call light placed within reach. Frequent visual checks done.
[2021-06-24] MEDS: PANTOPRAZOLE SODIUM 40 MG TABLET.DR PO SCH (06:21)
[2021-06-24 07:41] VITALS: BP 117/39
[2021-06-24] MEDS ORDERED: FERROUS SULFATE 325 MG TABEC PO SCH (09:00)
[2021-06-24] MEDS ORDERED: Medication Not On Formulary EA (Lactose-Reduced Food (Ensure Enlive) 237 ML) PO SCH (09:00)
[2021-06-24] MEDS ORDERED: METOPROLOL SUCCINATE XL 50 MG TAB.SR.24H PO SCH (09:00)
[2021-06-24] MEDS ORDERED: ASPIRIN EC 81 MG TABLET.DR PO SCH (09:00)
[2021-06-24] MEDS: FUROSEMIDE 20 MG TABLET PO SCH (09:15)
[2021-06-24] MEDS: DOCUSATE SODIUM 100 MG CAPSULE PO SCH ×2 (09:15→17:00)
[2021-06-24] MEDS: ACIDOPHILUS/BULGARICUS CHEW TAB PO SCH ×2 (09:15→20:17)
[2021-06-24] MEDS: FOLIC ACID 1 MG TABLET PO SCH (09:15)
[2021-06-24] MEDS: SERTRALINE HCL 50 MG TABLET PO SCH (09:16)
[2021-06-24] MEDS: DONEPEZIL 5 MG TABLET PO SCH (09:16)
[2021-06-24] MEDS: LOSARTAN POTASSIUM 50 MG TABLET PO SCH (09:17)
[2021-06-24] MEDS: ENSURE ENLIVE (VAN) 240 ML LIQUID PO SCH ×3 (09:17→17:14)
[2021-06-24] MEDS: ENOXAPARIN SODIUM 40 MG/0.4 ML DISP.SYRIN SQ SCH (09:20)
[2021-06-24 16:00] VITALS: BP 105/39
[2021-06-24] MEDS: SENNOSIDES 1 TABLET PO SCH (20:16)
[2021-06-24] MEDS: SPIRONOLACTONE 25 MG TABLET PO SCH (20:17)
[2021-06-24 20:53] VITALS: BP 117/42
--- NOTE | 2021-06-24 22:05 | NUR ---
Awake alert and oriented x1-2 Confused and disoriented. Admitted for CHF, generalized weakness and deconditioning. Patient her for rehab. Fall precautions maintained. Call hickman within reach. Repositioned for comfort. Hurst catheter intact draining well. Incontinent of BM. Kept clean and dry.Will monitor patient. VSS.
[2021-06-25 04:00] VITALS: BP 122/42
[2021-06-25] MEDS: PANTOPRAZOLE SODIUM 40 MG TABLET.DR PO SCH (06:10)
[2021-06-25 07:30] VITALS: BP 152/43
[2021-06-25] MEDS: ACIDOPHILUS/BULGARICUS CHEW TAB PO SCH ×2 (08:11→20:25)
[2021-06-25] MEDS: SERTRALINE HCL 50 MG TABLET PO SCH (08:11)
[2021-06-25] MEDS: FUROSEMIDE 20 MG TABLET PO SCH (08:11)
[2021-06-25] MEDS: DONEPEZIL 5 MG TABLET PO SCH (08:11)
[2021-06-25] MEDS: FOLIC ACID 1 MG TABLET PO SCH (08:11)
[2021-06-25] MEDS: LOSARTAN POTASSIUM 50 MG TABLET PO SCH (08:13)
[2021-06-25] MEDS: ASPIRIN 81 MG TAB.CHEW PO SCH (08:16)
[2021-06-25] MEDS: FERROUS SULFATE 300 MG/5 ML LIQUID UDC PO SCH (08:16)
[2021-06-25] MEDS: DOCUSATE SODIUM 100 MG/10 ML LIQUID UDC PO SCH ×2 (08:16→17:19)
[2021-06-25] MEDS: ENSURE ENLIVE (VAN) 240 ML LIQUID PO SCH ×3 (08:18→17:19)
[2021-06-25] MEDS: ENOXAPARIN SODIUM 40 MG/0.4 ML DISP.SYRIN SQ SCH (08:20)
[2021-06-25] MEDS ORDERED: METOPROLOL TARTRATE 50 MG TABLET PO ONE (08:30)
[2021-06-25] MEDS ORDERED: ENSURE ENLIVE (VAN) 240 ML LIQUID PO SCH (14:45)
[2021-06-25 15:54] VITALS: BP 127/35
--- NOTE | 2021-06-25 18:45 | NUR ---
Patient remains alert, oriented x 1-2, not in any form of distress, on room air during the shift. She denies any pain or discomfort. She is compliant with medications and care. Hurst catheter in place and patent draining clear yellow urine. Patient seen by Dr. Grace during the shift with no new order. Peripheral IV line on right forearm intact and patent with no signs of infections. Assisted with her needs. Call light and frequently used items placed within patient's reach.
[2021-06-25 20:00] VITALS: BP 114/58
[2021-06-25] MEDS: SENNOSIDES 1 TABLET PO SCH (20:25)
[2021-06-25] MEDS: SPIRONOLACTONE 25 MG TABLET PO SCH (20:25)
[2021-06-25] MEDS: METOPROLOL TARTRATE 50 MG TABLET PO SCH (20:26)
--- NOTE | 2021-06-26 00:27 | NUR ---
Awake upon initial rounds. AAOx2-3 Confused and disoriented. All needs attended. Incontinent of BM x1. Kept clean and dry. Hurst catheter intact draining yellow urine. Fall precautions maintained. Bed alarm on. Patient accidentally pulled heplock. All due meds given. Will monitor patient.VSS.
[2021-06-26 04:00] VITALS: BP 129/44
[2021-06-26] MEDS: PANTOPRAZOLE ORAL SUSPENSION 40 MG SUSPDR.PKT PO SCH (06:04)
[2021-06-26 08:00] VITALS: BP 139/43
--- NOTE | 2021-06-26 08:00 | NUR ---
Received patient awake, alert and oriented. Denies pain or SOB. Pt has no access, MD aware. Scabs on the lower extremities and scalp noted. Hurst draining clear and yellow urine. Safety initiated. Bed alarm on. Call light within reach. Will continue to monitor.
[2021-06-26] MEDS: LOSARTAN POTASSIUM 50 MG TABLET PO SCH (08:25)
[2021-06-26] MEDS: FUROSEMIDE 20 MG TABLET PO SCH (08:25)
[2021-06-26] MEDS: ASPIRIN 81 MG TAB.CHEW PO SCH (08:25)
[2021-06-26] MEDS: FOLIC ACID 1 MG TABLET PO SCH (08:25)
[2021-06-26] MEDS: DONEPEZIL 5 MG TABLET PO SCH (08:25)
[2021-06-26] MEDS: ACIDOPHILUS/BULGARICUS CHEW TAB PO SCH ×2 (08:25→21:28)
[2021-06-26] MEDS: METOPROLOL TARTRATE 50 MG TABLET PO SCH ×2 (08:26→21:33)
[2021-06-26] MEDS: SERTRALINE HCL 50 MG TABLET PO SCH (08:26)
[2021-06-26] MEDS: ENOXAPARIN SODIUM 40 MG/0.4 ML DISP.SYRIN SQ SCH (08:27)
[2021-06-26] MEDS: FERROUS SULFATE 300 MG/5 ML LIQUID UDC PO SCH (08:27)
[2021-06-26] MEDS: DOCUSATE SODIUM 100 MG/10 ML LIQUID UDC PO SCH ×2 (08:27→15:43)
[2021-06-26] MEDS: ENSURE ENLIVE (VAN) 240 ML LIQUID PO SCH ×3 (08:27→16:08)
--- NOTE | 2021-06-26 08:36 | NUR ---
INDIVIDUALIZED PLAN OF CARE
[2021-06-26] MEDS ORDERED: METOPROLOL SUCCINATE XL 50 MG TAB.SR.24H PO SCH (09:00)
--- NOTE | 2021-06-26 10:00 | NUR ---
Per PT, patient refuse PT services. Will continue to monitor.
--- NOTE | 2021-06-26 14:56 | NUR ---
INDIVIDUALIZED PLAN OF CARE
[2021-06-26 16:00] VITALS: BP 122/48
--- NOTE | 2021-06-26 17:25 | NUR ---
Pt. remains afebrile. Vital signs stable. Denies pain or SOB. Pt was able to work with PT but was only able to sit at the EOB because she is "tired". Hurst care provided. Good urine output draining clear and yellow urine. No new skin breakdown noted. Fall precautions observed. All meds given as ordered. Safety and comfort measures maintained t/o shift. All needs met.
[2021-06-26 20:00] VITALS: BP 130/59
--- NOTE | 2021-06-26 20:11 | NUR ---
Patient resting in bed comfortably.Denies SOB and pain.Compliant with medication.F/c draining well.Continue safety measures .Call light within reach. Will continue to monitor.
[2021-06-26] MEDS: SENNOSIDES 1 TABLET PO SCH (21:29)
[2021-06-26] MEDS: SPIRONOLACTONE 25 MG TABLET PO SCH (21:29)
[2021-06-27 04:00] VITALS: BP 125/34
[2021-06-27] MEDS: PANTOPRAZOLE ORAL SUSPENSION 40 MG SUSPDR.PKT PO SCH (06:05)
[2021-06-27 06:49] LABS: HEMATOCRIT 31.3 % (31.2-41.9); MEAN CORPUSCULAR HEMOGLOBIN 25.3 uug (24.7-32.8); MEAN CORPUSCULAR VOLUME 79.8 fL (75.5-95.3); PLATELET COUNT (AUTO) 159 K/uL (179-408)
[2021-06-27 07:16] LABS: BILIRUBIN,TOTAL 0.3 mg/dL (0.2-1.0); CREATININE 0.7 mg/dL (0.6-1.3); MAGNESIUM 2.5 mg/dL (1.8-2.4); PHOSPHOROUS 3.1 mg/dL (2.5-4.9); POTASSIUM 4.9 mmol/L (3.5-5.1); TOTAL PROTEIN, SERUM 6.6 g/dL (6.4-8.2)
--- NOTE | 2021-06-27 07:49 | NUR ---
Received in bed comfortably resting arousable to stimuli. Oriented x1 with confusion and disorientation. Reoriented prn. No resp distress no facial grimacing noted. Hurst catheter intact draining pale yellow urine. No hematuria noted. Safety and comfort maintained. Call light within reach.
[2021-06-27 07:58] VITALS: BP 141/35
[2021-06-27] MEDS: FUROSEMIDE 20 MG TABLET PO SCH (08:22)
[2021-06-27] MEDS: FOLIC ACID 1 MG TABLET PO SCH (08:22)
[2021-06-27] MEDS: FERROUS SULFATE 300 MG/5 ML LIQUID UDC PO SCH (08:22)
[2021-06-27] MEDS: ASPIRIN 81 MG TAB.CHEW PO SCH (08:22)
[2021-06-27] MEDS: DONEPEZIL 5 MG TABLET PO SCH (08:22)
[2021-06-27] MEDS: SERTRALINE HCL 50 MG TABLET PO SCH (08:22)
[2021-06-27] MEDS: ACIDOPHILUS/BULGARICUS CHEW TAB PO SCH ×2 (08:22→20:43)
[2021-06-27] MEDS: METOPROLOL TARTRATE 50 MG TABLET PO SCH ×2 (08:22→20:45)
[2021-06-27] MEDS: ENOXAPARIN SODIUM 40 MG/0.4 ML DISP.SYRIN SQ SCH (08:23)
[2021-06-27] MEDS: LOSARTAN POTASSIUM 50 MG TABLET PO SCH (08:23)
[2021-06-27] MEDS: ENSURE ENLIVE (VAN) 240 ML LIQUID PO SCH ×3 (08:24→17:12)
[2021-06-27] MEDS: DOCUSATE SODIUM 100 MG/10 ML LIQUID UDC PO SCH ×2 (08:32→17:11)
[2021-06-27 15:35] VITALS: BP 110/32
[2021-06-27 20:00] VITALS: BP 97/42
[2021-06-27] MEDS: SPIRONOLACTONE 25 MG TABLET PO SCH (20:43)
[2021-06-27] MEDS: SENNOSIDES 1 TABLET PO SCH (20:43)
[2021-06-28 04:00] VITALS: BP 136/55
[2021-06-28] MEDS: PANTOPRAZOLE ORAL SUSPENSION 40 MG SUSPDR.PKT PO SCH (06:16)
[2021-06-28 07:30] VITALS: BP 134/32
[2021-06-28] MEDS: ASPIRIN 81 MG TAB.CHEW PO SCH (09:54)
[2021-06-28] MEDS: SERTRALINE HCL 50 MG TABLET PO SCH (09:55)
[2021-06-28] MEDS: ACIDOPHILUS/BULGARICUS CHEW TAB PO SCH ×2 (09:55→20:51)
[2021-06-28] MEDS: FOLIC ACID 1 MG TABLET PO SCH (09:55)
[2021-06-28] MEDS: DONEPEZIL 5 MG TABLET PO SCH (09:55)
[2021-06-28] MEDS: FERROUS SULFATE 300 MG/5 ML LIQUID UDC PO SCH (09:59)
[2021-06-28] MEDS: DOCUSATE SODIUM 100 MG/10 ML LIQUID UDC PO SCH ×2 (09:59→17:21)
[2021-06-28] MEDS: ENSURE ENLIVE (VAN) 240 ML LIQUID PO SCH ×3 (09:59→17:21)
[2021-06-28] MEDS: ENOXAPARIN SODIUM 40 MG/0.4 ML DISP.SYRIN SQ SCH (10:06)
[2021-06-28] MEDS: LOSARTAN POTASSIUM 50 MG TABLET PO SCH (11:34)
[2021-06-28] MEDS: METOPROLOL TARTRATE 50 MG TABLET PO SCH ×2 (11:34→20:52)
[2021-06-28] MEDS: FUROSEMIDE 20 MG TABLET PO SCH (11:35)
--- NOTE | 2021-06-28 11:36 | NUR ---
Pt's bp noted 125/36 HR:72. rechecked with a manual Bp machine which showed of 130/[address] Montemayor who is in the unit regarding low diastolic Blood pressure and per MD hold lasix for now and may administer metoprolol and losartan as ordered.
[2021-06-28 16:00] VITALS: BP 126/38
[2021-06-28] MEDS: SENNOSIDES 1 TABLET PO SCH (20:51)
[2021-06-28] MEDS: SPIRONOLACTONE 25 MG TABLET PO SCH (20:52)
[2021-06-29] MEDS: PANTOPRAZOLE ORAL SUSPENSION 40 MG SUSPDR.PKT PO SCH (06:00)
[2021-06-29] MEDS: SERTRALINE HCL 50 MG TABLET PO SCH (08:28)
[2021-06-29] MEDS: FUROSEMIDE 20 MG TABLET PO SCH (08:28)
[2021-06-29] MEDS: ASPIRIN 81 MG TAB.CHEW PO SCH (08:28)
[2021-06-29] MEDS: ACIDOPHILUS/BULGARICUS CHEW TAB PO SCH ×2 (08:28→21:04)
[2021-06-29] MEDS: DONEPEZIL 5 MG TABLET PO SCH (08:28)
[2021-06-29] MEDS: FOLIC ACID 1 MG TABLET PO SCH (08:28)
[2021-06-29] MEDS: FERROUS SULFATE 300 MG/5 ML LIQUID UDC PO SCH (08:29)
[2021-06-29] MEDS: LOSARTAN POTASSIUM 50 MG TABLET PO SCH (08:29)
[2021-06-29] MEDS: ENSURE ENLIVE (VAN) 240 ML LIQUID PO SCH ×3 (08:29→18:07)
[2021-06-29] MEDS: DOCUSATE SODIUM 100 MG/10 ML LIQUID UDC PO SCH ×2 (08:29→16:00)
[2021-06-29] MEDS: ENOXAPARIN SODIUM 40 MG/0.4 ML DISP.SYRIN SQ SCH (08:32)
[2021-06-29] MEDS: METOPROLOL TARTRATE 50 MG TABLET PO SCH ×2 (08:34→21:11)
[2021-06-29 12:00] VITALS: BP 104/37
--- NOTE | 2021-06-29 13:07 | NUR ---
INTERDISCIPLINARY TEAM CONFERENCE
[2021-06-29 16:00] VITALS: BP 112/36
--- NOTE | 2021-06-29 18:30 | NUR ---
Hurst catheter removed per MD order. Will continue to monitor.
[2021-06-29] MEDS: SENNOSIDES 1 TABLET PO SCH (21:04)
[2021-06-29] MEDS: SPIRONOLACTONE 25 MG TABLET PO SCH (21:04)
--- NOTE | 2021-06-30 01:51 | NUR ---
Resting in bed upon initial rounds. AAOx2-3 forgetful at times. Pleasantly confused. Admitted for generalized weakness, deconditioning and CHF. Natali bautistaetr
--- NOTE | 2021-06-30 02:08 | NUR ---
Hurst catheter d'yamila earlier this shift. Patient incontinent of urine. Kept clean and dry. VSS. Will monitor patient.
[2021-06-30 05:58] VITALS: BP 132/91
[2021-06-30] MEDS: PANTOPRAZOLE ORAL SUSPENSION 40 MG SUSPDR.PKT PO SCH (06:06)
[2021-06-30 07:43] VITALS: BP 125/72
[2021-06-30] MEDS: SERTRALINE HCL 50 MG TABLET PO SCH (09:44)
[2021-06-30] MEDS: ASPIRIN 81 MG TAB.CHEW PO SCH (09:44)
[2021-06-30] MEDS: ACIDOPHILUS/BULGARICUS CHEW TAB PO SCH ×2 (09:44→20:48)
[2021-06-30] MEDS: FUROSEMIDE 20 MG TABLET PO SCH (09:44)
[2021-06-30] MEDS: FOLIC ACID 1 MG TABLET PO SCH (09:44)
[2021-06-30] MEDS: FERROUS SULFATE 300 MG/5 ML LIQUID UDC PO SCH (09:44)
[2021-06-30] MEDS: DONEPEZIL 5 MG TABLET PO SCH (09:44)
[2021-06-30] MEDS: DOCUSATE SODIUM 100 MG/10 ML LIQUID UDC PO SCH ×2 (09:44→17:46)
[2021-06-30] MEDS: ENOXAPARIN SODIUM 40 MG/0.4 ML DISP.SYRIN SQ SCH (09:52)
[2021-06-30] MEDS: LOSARTAN POTASSIUM 50 MG TABLET PO SCH (09:53)
[2021-06-30] MEDS: METOPROLOL TARTRATE 50 MG TABLET PO SCH ×2 (09:53→20:49)
[2021-06-30] MEDS: ENSURE ENLIVE (VAN) 240 ML LIQUID PO SCH ×3 (09:54→17:46)
[2021-06-30 16:22] VITALS: BP 110/68
[2021-06-30 20:09] VITALS: BP 109/56
[2021-06-30] MEDS: SPIRONOLACTONE 25 MG TABLET PO SCH (20:48)
[2021-06-30] MEDS: SENNOSIDES 1 TABLET PO SCH (20:48)
--- NOTE | 2021-06-30 21:26 | NUR ---
Awake alert and oriented x2-3 with periods of confusion at times. VSS. Needs attended. Compliant with meds and care. Patient was incontinent of bowel and bladder. Kept clean and dry. Will monitor patient. Siderails up for safety.
[2021-07-01] MEDS: PANTOPRAZOLE ORAL SUSPENSION 40 MG SUSPDR.PKT PO SCH (06:04)
[2021-07-01 08:01] VITALS: BP 125/49
[2021-07-01] MEDS: DONEPEZIL 5 MG TABLET PO SCH (09:36)
[2021-07-01] MEDS: ACIDOPHILUS/BULGARICUS CHEW TAB PO SCH ×2 (09:36→21:43)
[2021-07-01] MEDS: FOLIC ACID 1 MG TABLET PO SCH (09:36)
[2021-07-01] MEDS: FUROSEMIDE 20 MG TABLET PO SCH (09:36)
[2021-07-01] MEDS: ASPIRIN 81 MG TAB.CHEW PO SCH (09:36)
[2021-07-01] MEDS: METOPROLOL TARTRATE 50 MG TABLET PO SCH ×2 (09:37→21:00)
[2021-07-01] MEDS: SERTRALINE HCL 50 MG TABLET PO SCH (09:37)
[2021-07-01] MEDS: LOSARTAN POTASSIUM 50 MG TABLET PO SCH (09:37)
[2021-07-01] MEDS: FERROUS SULFATE 300 MG/5 ML LIQUID UDC PO SCH (09:38)
[2021-07-01] MEDS: ENSURE ENLIVE (VAN) 240 ML LIQUID PO SCH ×3 (09:39→17:53)
[2021-07-01] MEDS: ENOXAPARIN SODIUM 40 MG/0.4 ML DISP.SYRIN SQ SCH (09:40)
[2021-07-01] MEDS: DOCUSATE SODIUM 100 MG/10 ML LIQUID UDC PO SCH ×2 (11:13→17:52)
[2021-07-01 16:19] VITALS: BP 122/50
--- NOTE | 2021-07-01 16:38 | NUR ---
Received in bed resting comfortable . AAO x2-3 Honduran speaking with little Greenlandic, with periods of confusion and disorientation at times. Reoriented . No respiratory distress no facial grimacing noted. Incontinent of B&B kept clean and dry. All Meds given as ordered. Safety and comfort maintained. Call light within reach.
--- NOTE | 2021-07-01 19:30 | NUR ---
Received patient on bed, alert, no shortness of breath. No complaint of pain. No other unusualities noted.
[2021-07-01 20:00] VITALS: BP 103/40
[2021-07-01] MEDS: SPIRONOLACTONE 25 MG TABLET PO SCH (21:42)
[2021-07-01] MEDS: SENNOSIDES 1 TABLET PO SCH (21:42)
[2021-07-02 04:00] VITALS: BP 132/76
[2021-07-02] MEDS: PANTOPRAZOLE ORAL SUSPENSION 40 MG SUSPDR.PKT PO SCH (05:52)
--- NOTE | 2021-07-02 06:33 | NUR ---
Perineal care done , skin intact. repositioned for comfort, needs minimal assist when moving in bed. Left on bed in fair condition.
[2021-07-02 07:15] VITALS: BP 127/45
[2021-07-02] MEDS: ASPIRIN 81 MG TAB.CHEW PO SCH (08:03)
[2021-07-02] MEDS: FUROSEMIDE 20 MG TABLET PO SCH (08:03)
[2021-07-02] MEDS: DOCUSATE SODIUM 100 MG/10 ML LIQUID UDC PO SCH ×2 (08:03→16:39)
[2021-07-02] MEDS: DONEPEZIL 5 MG TABLET PO SCH (08:03)
[2021-07-02] MEDS: ACIDOPHILUS/BULGARICUS CHEW TAB PO SCH ×2 (08:03→21:49)
[2021-07-02] MEDS: SERTRALINE HCL 50 MG TABLET PO SCH (08:03)
[2021-07-02] MEDS: FERROUS SULFATE 300 MG/5 ML LIQUID UDC PO SCH (08:03)
[2021-07-02] MEDS: LOSARTAN POTASSIUM 50 MG TABLET PO SCH (08:03)
[2021-07-02] MEDS: METOPROLOL TARTRATE 50 MG TABLET PO SCH ×2 (08:03→21:49)
[2021-07-02] MEDS: FOLIC ACID 1 MG TABLET PO SCH (08:04)
[2021-07-02] MEDS: ENSURE ENLIVE (VAN) 240 ML LIQUID PO SCH ×3 (08:04→16:39)
[2021-07-02] MEDS: ENOXAPARIN SODIUM 40 MG/0.4 ML DISP.SYRIN SQ SCH (08:34)
[2021-07-02 15:09] VITALS: BP 117/47
[2021-07-02 20:00] VITALS: BP 111/25
[2021-07-02] MEDS: SPIRONOLACTONE 25 MG TABLET PO SCH (21:49)
[2021-07-02] MEDS: SENNOSIDES 1 TABLET PO SCH (21:50)
[2021-07-03 04:00] VITALS: BP 101/45
[2021-07-03] MEDS: PANTOPRAZOLE ORAL SUSPENSION 40 MG SUSPDR.PKT PO SCH (06:22)
[2021-07-03 06:53] LABS: HEMATOCRIT 26.8 % (31.2-41.9); MEAN CORPUSCULAR HEMOGLOBIN 25.9 uug (24.7-32.8); MEAN CORPUSCULAR VOLUME 79.2 fL (75.5-95.3); PLATELET COUNT (AUTO) 172 K/uL (179-408)
[2021-07-03 07:25] LABS: CREATININE 0.8 mg/dL (0.6-1.3); POTASSIUM 4.5 mmol/L (3.5-5.1)
[2021-07-03 07:49] VITALS: BP 136/40
[2021-07-03] MEDS: FOLIC ACID 1 MG TABLET PO SCH ×2 (09:00→10:07)
[2021-07-03] MEDS: SERTRALINE HCL 50 MG TABLET PO SCH ×2 (09:00→10:07)
[2021-07-03] MEDS: FUROSEMIDE 20 MG TABLET PO SCH ×2 (09:00→10:05)
[2021-07-03] MEDS: METOPROLOL TARTRATE 50 MG TABLET PO SCH ×2 (09:00→20:32)
[2021-07-03] MEDS: FERROUS SULFATE 300 MG/5 ML LIQUID UDC PO SCH ×2 (09:00→10:08)
[2021-07-03] MEDS: ASPIRIN 81 MG TAB.CHEW PO SCH (10:03)
[2021-07-03] MEDS: LOSARTAN POTASSIUM 50 MG TABLET PO SCH (10:04)
[2021-07-03] MEDS: ACIDOPHILUS/BULGARICUS CHEW TAB PO SCH ×2 (10:04→20:30)
[2021-07-03] MEDS: DONEPEZIL 5 MG TABLET PO SCH (10:05)
[2021-07-03] MEDS: DOCUSATE SODIUM 100 MG/10 ML LIQUID UDC PO SCH ×2 (10:08→17:00)
[2021-07-03] MEDS: ENOXAPARIN SODIUM 40 MG/0.4 ML DISP.SYRIN SQ SCH (10:08)
[2021-07-03] MEDS: ENSURE ENLIVE (VAN) 240 ML LIQUID PO SCH ×3 (10:08→17:34)
--- NOTE | 2021-07-03 10:36 | NUR ---
combative with med pass tries to spit at you and yell at you when trying to give meds
[2021-07-03 16:00] VITALS: BP 132/36
[2021-07-03 20:15] VITALS: BP 132/40
[2021-07-03] MEDS: SPIRONOLACTONE 25 MG TABLET PO SCH (20:30)
[2021-07-03] MEDS: SENNOSIDES 1 TABLET PO SCH (20:30)
[2021-07-04 04:18] VITALS: BP 135/35
[2021-07-04] MEDS: PANTOPRAZOLE ORAL SUSPENSION 40 MG SUSPDR.PKT PO SCH (06:38)
[2021-07-04 07:56] VITALS: BP 133/32
[2021-07-04] MEDS: DOCUSATE SODIUM 100 MG/10 ML LIQUID UDC PO SCH (09:00)
[2021-07-04] MEDS: SERTRALINE HCL 50 MG TABLET PO SCH (09:00)
[2021-07-04] MEDS: FUROSEMIDE 20 MG TABLET PO SCH (09:00)
[2021-07-04] MEDS: LOSARTAN POTASSIUM 50 MG TABLET PO SCH (09:00)
[2021-07-04] MEDS: FERROUS SULFATE 300 MG/5 ML LIQUID UDC PO SCH (09:00)
[2021-07-04] MEDS: ASPIRIN 81 MG TAB.CHEW PO SCH (09:00)
[2021-07-04] MEDS: METOPROLOL TARTRATE 50 MG TABLET PO SCH (09:00)
[2021-07-04] MEDS: ACIDOPHILUS/BULGARICUS CHEW TAB PO SCH (09:02)
[2021-07-04] MEDS: DONEPEZIL 5 MG TABLET PO SCH (09:02)
[2021-07-04] MEDS: FOLIC ACID 1 MG TABLET PO SCH (09:03)
[2021-07-04] MEDS: ENSURE ENLIVE (VAN) 240 ML LIQUID PO SCH ×2 (09:03→13:28)
[2021-07-04] MEDS: ENOXAPARIN SODIUM 40 MG/0.4 ML DISP.SYRIN SQ SCH (09:06)
[2021-07-04 12:00] VITALS: BP 121/28
[2021-07-04 16:00] VITALS: BP 129/42
--- NOTE | 2021-07-04 16:30 | NUR ---
DC instructions given and noted with understanding. dc on stable condition.
--- NOTE | 2021-07-04 16:30 | NUR ---
Discharged patient via private care picked up by the daughter. Stable condition, no distress or pain identified. belonging list signed and with the patient. photo taken in chart. All needs were attended. all due meds given.
== END 2021-07-04 16:30 | DRG 291 ==
PROVIDERS: ADMIT Physical Medicine & Rehabilitation Pain Medicine; ATTEND Physical Medicine & Rehabilitation Pain Medicine
DX: I11.0 Hypertensive heart disease with heart failure (principal); I50.23 Acute on chronic systolic (congestive) heart failure; G92.8 Other toxic encephalopathy; J69.0 Pneumonitis due to inhalation of food and vomit; E44.0 Moderate protein-calorie malnutrition; G91.2 (Idiopathic) normal pressure hydrocephalus; Z95.3 Presence of xenogenic heart valve; D46.9 Myelodysplastic syndrome, unspecified; S00.83XD Contusion of other part of head, subsequent encounter; W18.30XD Fall on same level, unspecified, subsequent encounter; R53.1 Weakness; D63.8 Anemia in other chronic diseases classified elsewhere; I69.398 Other sequelae of cerebral infarction; E04.1 Nontoxic single thyroid nodule; E88.09 Other disorders of plasma-protein metabolism, not elsewhere classified; F32.A Depression, unspecified; F01.50 Vascular dementia, unspecified severity, without behavioral disturbance, psychotic disturbance, mood disturbance, and anxiety; G93.89 Other specified disorders of brain; Z91.040 Latex allergy status; I08.0 Rheumatic disorders of both mitral and aortic valves; L98.9 Disorder of the skin and subcutaneous tissue, unspecified; E05.90 Thyrotoxicosis, unspecified without thyrotoxic crisis or storm; R13.10 Dysphagia, unspecified
CPT/HCPCS: 36415; 83735; 84100; 85025; 97161; 97535-GO-CO; A4663; A6209; J1650; J2543; J7060

== ENCOUNTER 2022-01-06 17:00 | Emergency (ER) | payer MEDICARE, OTHER ==
[~2022-01-06 17:00] MED LIST changes: +ACET-2154 PO; +ACID1TAB12 PO; -ACID1TAB4 PO; +ENOX40DI SQ; -FURO-151 PO; +FURO20TA4 PO; +LACT-246 PO; +LOSA100T31 PO; +METO-358 PO; -METO25TA3 PO; +NITR0.4T48 SL; +PIPE3.379 IV; -TELM80TA2 PO
--- NOTE | 2022-01-06 17:57 | NUR ---
Spoke with [facility] and stated that ETA would be in 2-3 hours.
--- NOTE | 2022-01-06 19:54 | NUR ---
[facility] arrived to ER to transport patient back to [facility].
[2022-01-07] MEDS ORDERED: SPIR25TA6 PO (12:13)
[2022-01-07] MEDS ORDERED: FURO20TA4 PO (12:13)
[2022-01-07] MEDS ORDERED: SERT50TA PO (12:13)
[2022-01-07] MEDS ORDERED: METO50TA16 PO (12:13)
[2022-01-07] MEDS ORDERED: DONE5TAB34 PO (12:13)
[2022-01-07] MEDS ORDERED: LOSA50TA39 PO (12:13)
[2022-01-07] MEDS ORDERED: DOCU100C36 PO (13:02)
[2022-01-07] MEDS ORDERED: ASPI81TA31 PO (13:02)
[2022-01-07] MEDS ORDERED: FERR325T6 PO (13:02)
[2022-01-07] MEDS ORDERED: SENN-261 PO (13:02)
[2022-01-07] MEDS ORDERED: MELA5TAB PO (13:02)
[2022-01-07] MEDS ORDERED: FOLI1TAB94 PO (13:02)
[2022-01-07] MEDS ORDERED: NITR0.4T48 SL (13:02)
[2022-01-07] MEDS ORDERED: ACID1TAB12 PO (13:02)
[2022-01-07] MEDS ORDERED: ACET-2154 PO (13:02)
== END 2022-01-06 20:15 ==
LOC: ER 17:00
DX: K62.5 Hemorrhage of anus and rectum (principal); F03.90 Unspecified dementia, unspecified severity, without behavioral disturbance, psychotic disturbance, mood disturbance, and anxiety; E03.9 Hypothyroidism, unspecified; Z79.890 Hormone replacement therapy; Z79.899 Other long term (current) drug therapy; Z91.040 Latex allergy status
CPT/HCPCS: 71045; A4663

== ENCOUNTER 2022-01-07 05:24 | Inpatient (IN) | payer MEDICARE, OTHER ==
[~2022-01-07] VITALS: Ht 157.5 cm; Wt 50.8 kg
[2022-01-07] MEDS ORDERED: IV NORMAL SALINE 500 ML BAG IV ONE (05:45)
[2022-01-07 07:59] LABS: HEMATOCRIT 26.9 % (31.2-41.9); MEAN CORPUSCULAR HEMOGLOBIN 29.7 uug (24.7-32.8); MEAN CORPUSCULAR VOLUME 90.5 fL (75.5-95.3); PLATELET COUNT (AUTO) 153 K/uL (179-408)
[2022-01-07 08:27] LABS: ALANINE AMINOTRANSFERASE 14 U/L (14-59); ALKALINE PHOSPHATASE 46 U/L (50-136); ASPARTATE AMINOTRANSFERASE 20 U/L (15-37); BILIRUBIN,DIRECT 0.1 mg/dL (0.0-0.2); BILIRUBIN,TOTAL 0.7 mg/dL (0.2-1.0); CARBON DIOXIDE 28 mmol/L (21-32); CHLORIDE 109 mmol/L (98-107); CREATININE 0.8 mg/dL (0.6-1.3); GLUCOSE 97 mg/dL (74-106); TOTAL PROTEIN, SERUM 6.9 g/dL (6.4-8.2); UREA NITROGEN, BLOOD 33 mg/dL (7-18)
[2022-01-07 08:54] LABS: *OCCULT BLOOD STOOL POSITIVE (NEGATIVE)
[2022-01-07 11:30] VITALS: BP 127/44
[2022-01-07] MEDS ORDERED: FURO20TA4 PO (12:13)
[2022-01-07] MEDS ORDERED: METO50TA16 PO (12:13)
[2022-01-07] MEDS ORDERED: SERT50TA PO (12:13)
[2022-01-07] MEDS ORDERED: LOSA50TA39 PO (12:13)
[2022-01-07] MEDS ORDERED: DONE5TAB34 PO (12:13)
[2022-01-07] MEDS ORDERED: SPIR25TA6 PO (12:13)
[2022-01-07] MEDS ORDERED: ACETAMINOPHEN 650 MG SUPP.RECT RC PRN (12:30)
[2022-01-07] MEDS ORDERED: ONDANSETRON 4 MG/2 ML VIAL IV PRN (12:30)
[2022-01-07] MEDS ORDERED: ASPI81TA31 PO (13:02)
[2022-01-07] MEDS ORDERED: MELA5TAB PO (13:02)
[2022-01-07] MEDS ORDERED: FERR325T6 PO (13:02)
[2022-01-07] MEDS ORDERED: ACET-2154 PO (13:02)
[2022-01-07] MEDS ORDERED: FOLI1TAB94 PO (13:02)
[2022-01-07] MEDS ORDERED: NITR0.4T48 SL (13:02)
[2022-01-07] MEDS ORDERED: SENN-261 PO (13:02)
[2022-01-07] MEDS ORDERED: DOCU100C36 PO (13:02)
[2022-01-07] MEDS ORDERED: ACID1TAB12 PO (13:02)
[2022-01-07] MEDS: IV D5/ 0.9% NACL 1,000 ML IV PRN (13:22)
[2022-01-07] MEDS ORDERED: SWABABLE VALVE TRANSFER SET EA MC ONE (13:36)
[2022-01-07] MEDS ORDERED: IOHEXOL 300MG/ML 100 ML INFUS..BTL ONE (13:36)
[2022-01-07] MEDS ORDERED: IV NORMAL SALINE 250 ML IV ONE (13:36)
[2022-01-07] MEDS: PANTOPRAZOLE SODIUM 40 MG VIAL IV SCH (14:05)
[2022-01-07 16:00] VITALS: BP 105/47
[2022-01-07 18:58] LABS: HEMATOCRIT 17.8 % (31.2-41.9)
[2022-01-07] MEDS ORDERED: FUROSEMIDE 20 MG/2 ML VIAL IV ONE ×2 (19:15→22:00)
[2022-01-07 20:00] VITALS: BP 102/36
[2022-01-07 21:31] LABS: *BILIRUBIN,URIN NEGATIVE (NEGATIVE); *BLOOD, URINE TRACE (NEGATIVE); *CLARITY,URINE CLEAR (CLEAR); *COLOR,URINE YELLOW (YELLOW); *KETONES,URINE NEGATIVE (NEGATIVE); *UROBILINOGEN,URINE 0.2 E.U./dl (NORMAL); LEUKOCYTE ESTERASE ,URINE NEGATIVE (NEGATIVE); NITRITE, URINE NEGATIVE (NEGATIVE); UGLUCOSE NEGATIVE (NEGATIVE)
[2022-01-07 21:32] LABS: BACTERIA,URINE FEW /HPF (NONE SEEN); SQUAMOUS EPITHELIAL CELL,UR FEW /HPF (NONE SEEN); WBC,URINE 0-3 /HPF (0-3)
[2022-01-07 23:44] VITALS: BP 117/43
[2022-01-08] VITALS (12 sets, daily range): BP systolic 109–137; BP diastolic 33–67
[2022-01-08] MEDS: PANTOPRAZOLE SODIUM 40 MG VIAL IV SCH ×2 (00:54→12:30)
[2022-01-08] MEDS ORDERED: GOLYTELY 4000 ML BOTTLE PO ONE (13:00)
[2022-01-08] MEDS ORDERED: PIPERACILLIN SODIUM/TAZOBACTAM 3.375 G in IV DEXTROSE 5% 50 ML IV ONE (18:30)
[2022-01-09] MEDS: PANTOPRAZOLE SODIUM 40 MG VIAL IV SCH ×2 (00:46→17:09)
[2022-01-09] MEDS: PIPERACILLIN SODIUM/TAZOBACTAM 3.375 G in IV DEXTROSE 5% 100 ML IV SCH ×3 (01:01→17:59)
[2022-01-09 06:49] LABS: MEAN CORPUSCULAR HEMOGLOBIN 29.9 uug (24.7-32.8); MEAN CORPUSCULAR VOLUME 90.2 fL (75.5-95.3); PLATELET COUNT (AUTO) 122 K/uL (179-408)
[2022-01-09 07:02] LABS: BILIRUBIN,TOTAL 0.9 mg/dL (0.2-1.0); CREATININE 0.8 mg/dL (0.6-1.3); MAGNESIUM 1.9 mg/dL (1.8-2.4); PHOSPHOROUS 2.6 mg/dL (2.5-4.9); POTASSIUM 3.4 mmol/L (3.5-5.1); TOTAL PROTEIN, SERUM 5.7 g/dL (6.4-8.2)
[2022-01-09 07:11] LABS: THYROID STIMULATING HORMONE 1.093 mIU/mL (0.358-3.740)
[2022-01-09] MEDS ORDERED: PANTOPRAZOLE SODIUM 40 MG VIAL IV ONE (09:30)
[2022-01-09] MEDS: POTASSIUM CHLORIDE 20 MEQ TAB.PRT.SR PO ONE ×3 (11:12→11:50)
[2022-01-09 11:55] VITALS: BP 134/47
[2022-01-09] MEDS: LORAZEPAM 2 MG/1 ML VIAL IV PRN (15:48)
[2022-01-09 16:26] VITALS: BP 136/47
[2022-01-09] MEDS ORDERED: MIDAZOLAM HCL 2 MG/2 ML VIAL ONE (19:54)
[2022-01-09 21:45] VITALS: BP 132/37
[2022-01-10] VITALS (9 sets, daily range): BP systolic 142–159; BP diastolic 31–53
[2022-01-10] MEDS: PIPERACILLIN SODIUM/TAZOBACTAM 3.375 G in IV DEXTROSE 5% 100 ML IV SCH ×3 (01:54→20:23)
[2022-01-10] MEDS: PANTOPRAZOLE SODIUM 40 MG VIAL IV SCH ×2 (05:02→17:48)
[2022-01-10] MEDS: IV D5/ 0.9% NACL 1,000 ML IV PRN (05:44)
[2022-01-10 06:33] LABS: HEMATOCRIT 22.1 % (31.2-41.9); MEAN CORPUSCULAR HEMOGLOBIN 30.2 uug (24.7-32.8); MEAN CORPUSCULAR VOLUME 91.1 fL (75.5-95.3); PLATELET COUNT (AUTO) 117 K/uL (179-408)
[2022-01-10 06:44] LABS: CREATININE 0.8 mg/dL (0.6-1.3); MAGNESIUM 1.9 mg/dL (1.8-2.4); PHOSPHOROUS 3.1 mg/dL (2.5-4.9); POTASSIUM 3.7 mmol/L (3.5-5.1)
[2022-01-10] MEDS: ENSURE CLEAR 240 ML LIQUID (MIX BERRY) PO SCH ×2 (13:59→17:48)
[2022-01-10] MEDS ORDERED: ETOMIDATE 20 MG/10 ML VIAL IV ONE (18:23)
[2022-01-11] VITALS: BP 141/52
[2022-01-11 00:36] LABS: HEMATOCRIT 25.9 % (31.2-41.9)
[2022-01-11] MEDS: LORAZEPAM 2 MG/1 ML VIAL IV PRN (01:51)
[2022-01-11 03:21] LABS: ABG BASE EXCESS -12.5 mmol/L; ABG HCO3 16.8 mmol/L; ABG PCO2 54.2 mmHg (35.0-45.0); ABG PH 7.109 (7.350-7.450); ABG PO2 109.4 mmHg (75.0-100.0); ABG SITE LEFT RADIAL; ABG TOTAL HEMOGLOBIN 10.9 G/dL (12.0-16.0); COHb 0.3 % (0.5-1.5); MetHb 0.4 % (0.0-1.5); O2Hb 95.5 % (94.0-97.0)
[2022-01-11] MEDS: PIPERACILLIN SODIUM/TAZOBACTAM 3.375 G in IV DEXTROSE 5% 100 ML IV SCH ×3 (03:29→17:27)
[2022-01-11] MEDS: IV D5/ 0.9% NACL 1,000 ML IV PRN (03:32)
[2022-01-11 04:00] VITALS: BP 159/63
[2022-01-11] MEDS: PANTOPRAZOLE SODIUM 40 MG VIAL IV SCH ×2 (05:32→17:27)
[2022-01-11 08:16] LABS: HEMATOCRIT 30.5 % (31.2-41.9)
[2022-01-11] MEDS ORDERED: FUROSEMIDE 40 MG/4 ML VIAL IV ONE (08:45)
[2022-01-11] MEDS: ENSURE CLEAR 240 ML LIQUID (MIX BERRY) PO SCH ×3 (09:00→17:27)
[2022-01-11] MEDS: AMIODARONE HCL 200 MG TABLET PO SCH ×2 (09:35→20:31)
[2022-01-11 10:00] LABS: ABG BASE EXCESS -4.4 mmol/L; ABG HCO3 19.8 mmol/L; ABG PCO2 33.4 mmHg (35.0-45.0); ABG PH 7.391 (7.350-7.450); ABG PO2 235.7 mmHg (75.0-100.0); ABG SITE LEFT RADIAL; ABG TOTAL HEMOGLOBIN 10.6 G/dL (12.0-16.0); COHb 0.3 % (0.5-1.5); MetHb 0.4 % (0.0-1.5); O2Hb 98.5 % (94.0-97.0); VENT MODE BIPAP 15/5
[2022-01-11 10:05] LABS: CREATININE 1.2 mg/dL (0.6-1.3)
[2022-01-11 10:12] LABS: BILIRUBIN,TOTAL 0.7 mg/dL (0.2-1.0); TOTAL PROTEIN, SERUM 6.2 g/dL (6.4-8.2)
[2022-01-11 11:23] VITALS: BP 103/41
[2022-01-11] MEDS: ACETAMINOPHEN 325 MG TABLET PO PRN (16:24)
[2022-01-11 16:49] VITALS: BP 122/46
[2022-01-11] MEDS: FUROSEMIDE 40 MG/4 ML VIAL IV SCH (17:27)
[2022-01-11 20:23] LABS: HEMATOCRIT 26.6 % (31.2-41.9)
[2022-01-11 20:59] VITALS: BP 104/40
[2022-01-12 00:34] VITALS: BP 108/42
[2022-01-12] MEDS: PIPERACILLIN SODIUM/TAZOBACTAM 3.375 G in IV DEXTROSE 5% 100 ML IV SCH ×3 (01:56→17:17)
[2022-01-12] MEDS: PANTOPRAZOLE SODIUM 40 MG VIAL IV SCH ×2 (04:16→17:00)
[2022-01-12 05:04] VITALS: BP 110/41
[2022-01-12 05:41] LABS: ABG BASE EXCESS -2.7 mmol/L; ABG HCO3 20.5 mmol/L; ABG PCO2 29.3 mmHg (35.0-45.0); ABG PH 7.462 (7.350-7.450); ABG PO2 108.7 mmHg (75.0-100.0); ABG SITE RIGHT BRACHIAL; ABG TOTAL HEMOGLOBIN 9.2 G/dL (12.0-16.0); COHb 0.3 % (0.5-1.5); MetHb 0.2 % (0.0-1.5); O2Hb 97.3 % (94.0-97.0); VENT MODE Nasal Cannula
[2022-01-12] MEDS: FUROSEMIDE 40 MG/4 ML VIAL IV SCH ×2 (05:51→17:16)
[2022-01-12 07:25] LABS: HEMATOCRIT 26.5 % (31.2-41.9); MEAN CORPUSCULAR HEMOGLOBIN 30.7 uug (24.7-32.8); MEAN CORPUSCULAR VOLUME 91.2 fL (75.5-95.3); PLATELET COUNT (AUTO) 123 K/uL (179-408)
[2022-01-12 07:33] LABS: ALANINE AMINOTRANSFERASE 16 U/L (14-59); ALKALINE PHOSPHATASE 47 U/L (50-136); ASPARTATE AMINOTRANSFERASE 26 U/L (15-37); BILIRUBIN,TOTAL 0.6 mg/dL (0.2-1.0); CARBON DIOXIDE 26 mmol/L (21-32); CHLORIDE 106 mmol/L (98-107); CREATININE 2.2 mg/dL (0.6-1.3); GLUCOSE 149 mg/dL (74-106); POTASSIUM 3.4 mmol/L (3.5-5.1); TOTAL PROTEIN, SERUM 5.6 g/dL (6.4-8.2); UREA NITROGEN, BLOOD 18 mg/dL (7-18)
[2022-01-12 07:39] VITALS: BP 127/49
[2022-01-12] MEDS: AMIODARONE HCL 200 MG TABLET PO SCH ×2 (08:26→20:46)
[2022-01-12] MEDS: ACETAMINOPHEN 325 MG TABLET PO PRN ×2 (08:26→15:15)
[2022-01-12] MEDS: ENSURE CLEAR 240 ML LIQUID (MIX BERRY) PO SCH ×3 (08:26→17:15)
[2022-01-12] MEDS: METOPROLOL SUCCINATE XL 50 MG TAB.SR.24H PO SCH (08:26)
[2022-01-12] MEDS ORDERED: POTASSIUM CHLORIDE 10 MEQ TAB.PRT.SR PO ONE (11:00)
[2022-01-12] MEDS ORDERED: POTASSIUM CHLORIDE 50 ML IV SCH (11:30)
[2022-01-12 11:49] VITALS: BP 97/41
[2022-01-12] MEDS: MORPHINE SULFATE 2 MG/1 ML DISP.SYRIN IV PRN ×2 (15:05→20:02)
[2022-01-12 15:22] VITALS: BP 118/43
[2022-01-12 20:06] VITALS: BP 144/51
[2022-01-13 00:22] VITALS: BP 136/52
[2022-01-13] MEDS: PIPERACILLIN SODIUM/TAZOBACTAM 3.375 G in IV DEXTROSE 5% 100 ML IV SCH ×3 (01:32→22:49)
[2022-01-13] MEDS: PANTOPRAZOLE SODIUM 40 MG VIAL IV SCH ×2 (04:19→20:19)
[2022-01-13] MEDS: MORPHINE SULFATE 2 MG/1 ML DISP.SYRIN IV PRN (04:20)
[2022-01-13 04:30] VITALS: BP 130/44
[2022-01-13] MEDS: ACETAMINOPHEN 325 MG TABLET PO PRN ×3 (04:36→17:13)
[2022-01-13] MEDS: FUROSEMIDE 40 MG/4 ML VIAL IV SCH (05:49)
[2022-01-13 06:51] LABS: MEAN CORPUSCULAR HEMOGLOBIN 30.2 uug (24.7-32.8); MEAN CORPUSCULAR VOLUME 90.7 fL (75.5-95.3); PLATELET COUNT (AUTO) 142 K/uL (179-408)
[2022-01-13 07:02] LABS: CARBON DIOXIDE 26 mmol/L (21-32); CHLORIDE 103 mmol/L (98-107); CREATININE 2.2 mg/dL (0.6-1.3); GLUCOSE 130 mg/dL (74-106); POTASSIUM 3.5 mmol/L (3.5-5.1); UREA NITROGEN, BLOOD 23 mg/dL (7-18)
[2022-01-13 07:08] LABS: ALANINE AMINOTRANSFERASE 21 U/L (14-59); ALKALINE PHOSPHATASE 56 U/L (50-136); ASPARTATE AMINOTRANSFERASE 23 U/L (15-37); BILIRUBIN,TOTAL 0.8 mg/dL (0.2-1.0); TOTAL PROTEIN, SERUM 6.2 g/dL (6.4-8.2)
[2022-01-13 07:27] VITALS: BP 117/42
[2022-01-13] MEDS: ENSURE CLEAR 240 ML LIQUID (MIX BERRY) PO SCH ×3 (08:51→16:03)
[2022-01-13] MEDS: METOPROLOL SUCCINATE XL 50 MG TAB.SR.24H PO SCH (08:52)
[2022-01-13 11:15] VITALS: BP 143/100
[2022-01-13 15:09] VITALS: BP 119/48
[2022-01-13] MEDS: FUROSEMIDE 20 MG/2 ML VIAL IV SCH (17:14)
[2022-01-13] MEDS ORDERED: FUROSEMIDE 40 MG/4 ML VIAL IV SCH (18:00)
[2022-01-13 20:08] LABS: HEMATOCRIT 31.7 % (31.2-41.9)
[2022-01-13 20:44] VITALS: BP 131/49
[2022-01-14 00:31] VITALS: BP 113/46
[2022-01-14] MEDS: ACETAMINOPHEN 325 MG TABLET PO PRN ×2 (04:12→09:13)
[2022-01-14 04:35] VITALS: BP 120/48
[2022-01-14] MEDS: FUROSEMIDE 20 MG/2 ML VIAL IV SCH (05:15)
[2022-01-14 07:29] VITALS: BP 122/43
[2022-01-14 08:23] LABS: HEMATOCRIT 25.7 % (31.2-41.9); MEAN CORPUSCULAR HEMOGLOBIN 30.8 uug (24.7-32.8); MEAN CORPUSCULAR VOLUME 90.2 fL (75.5-95.3); PLATELET COUNT (AUTO) 151 K/uL (179-408)
[2022-01-14 08:25] LABS: CARBON DIOXIDE 27 mmol/L (21-32); CHLORIDE 101 mmol/L (98-107); CREATININE 2.4 mg/dL (0.6-1.3); GLUCOSE 113 mg/dL (74-106); MAGNESIUM 1.9 mg/dL (1.8-2.4); PHOSPHOROUS 5.1 mg/dL (2.5-4.9); POTASSIUM 3.1 mmol/L (3.5-5.1); UREA NITROGEN, BLOOD 32 mg/dL (7-18)
[2022-01-14] MEDS: ENSURE CLEAR 240 ML LIQUID (MIX BERRY) PO SCH ×3 (08:55→16:06)
[2022-01-14] MEDS: METOPROLOL SUCCINATE XL 50 MG TAB.SR.24H PO SCH (08:55)
[2022-01-14] MEDS: PANTOPRAZOLE SODIUM 40 MG VIAL IV SCH ×2 (08:55→20:09)
[2022-01-14] MEDS ORDERED: POTASSIUM CHLORIDE 20 MEQ TAB.PRT.SR PO ONE (09:15)
[2022-01-14] MEDS: PIPERACILLIN SODIUM/TAZOBACTAM 3.375 G in IV DEXTROSE 5% 100 ML IV SCH ×2 (10:15→22:00)
[2022-01-14 11:19] VITALS: BP 127/73
[2022-01-14 15:16] VITALS: BP 116/44
[2022-01-14 20:47] VITALS: BP 143/47
[2022-01-15 00:51] VITALS: BP 135/48
[2022-01-15 04:22] VITALS: BP 135/48
[2022-01-15] MEDS: FUROSEMIDE 40 MG TABLET PO SCH (09:02)
[2022-01-15] MEDS: ENSURE CLEAR 240 ML LIQUID (MIX BERRY) PO SCH ×3 (09:02→16:55)
[2022-01-15] MEDS: PANTOPRAZOLE SODIUM 40 MG VIAL IV SCH ×2 (09:02→21:54)
[2022-01-15] MEDS: METOPROLOL SUCCINATE XL 50 MG TAB.SR.24H PO SCH (09:02)
[2022-01-15 09:22] LABS: HEMATOCRIT 30.2 % (31.2-41.9); MEAN CORPUSCULAR HEMOGLOBIN 29.5 uug (24.7-32.8); MEAN CORPUSCULAR VOLUME 89.8 fL (75.5-95.3); PLATELET COUNT (AUTO) 233 K/uL (179-408)
[2022-01-15 09:35] LABS: CARBON DIOXIDE 25 mmol/L (21-32); CHLORIDE 103 mmol/L (98-107); GLUCOSE 162 mg/dL (74-106); POTASSIUM 3.2 mmol/L (3.5-5.1); UREA NITROGEN, BLOOD 33 mg/dL (7-18)
[2022-01-15 09:46] LABS: ALANINE AMINOTRANSFERASE 12 U/L (14-59); ALKALINE PHOSPHATASE 46 U/L (50-136); ASPARTATE AMINOTRANSFERASE 14 U/L (15-37); BILIRUBIN,TOTAL 0.5 mg/dL (0.2-1.0); TOTAL PROTEIN, SERUM 6.6 g/dL (6.4-8.2)
[2022-01-15] MEDS: PIPERACILLIN SODIUM/TAZOBACTAM 3.375 G in IV DEXTROSE 5% 100 ML IV SCH ×2 (10:44→22:14)
[2022-01-15 11:18] VITALS: BP 128/45
[2022-01-15 11:30] VITALS: BP 129/51
[2022-01-15 15:40] VITALS: BP 129/45
[2022-01-15 20:00] VITALS: BP 114/40
[2022-01-15 20:06] LABS: HEMATOCRIT 26.8 % (31.2-41.9)
[2022-01-16] VITALS: BP 142/45
[2022-01-16 04:00] VITALS: BP 138/39
[2022-01-16 06:46] LABS: HEMATOCRIT 25.5 % (31.2-41.9); MEAN CORPUSCULAR HEMOGLOBIN 30.2 uug (24.7-32.8); MEAN CORPUSCULAR VOLUME 89.1 fL (75.5-95.3); PLATELET COUNT (AUTO) 192 K/uL (179-408)
[2022-01-16 07:02] LABS: CARBON DIOXIDE 30 mmol/L (21-32); CHLORIDE 107 mmol/L (98-107); CREATININE 1.8 mg/dL (0.6-1.3); GLUCOSE 99 mg/dL (74-106); UREA NITROGEN, BLOOD 30 mg/dL (7-18)
[2022-01-16 07:16] LABS: ALANINE AMINOTRANSFERASE 7 U/L (14-59); ALKALINE PHOSPHATASE 35 U/L (50-136); ASPARTATE AMINOTRANSFERASE 18 U/L (15-37); BILIRUBIN,TOTAL 0.3 mg/dL (0.2-1.0); TOTAL PROTEIN, SERUM 5.7 g/dL (6.4-8.2)
[2022-01-16] MEDS ORDERED: METO-357 PO (09:29)
[2022-01-16] MEDS ORDERED: FURO40TA5 PO (09:29)
[2022-01-16] MEDS ORDERED: POTASSIUM CHLORIDE 20 MEQ POWDER PACKET PO ONE (09:30)
[2022-01-16] MEDS: METOPROLOL SUCCINATE XL 50 MG TAB.SR.24H PO SCH (09:41)
[2022-01-16] MEDS: PANTOPRAZOLE SODIUM 40 MG VIAL IV SCH (09:41)
[2022-01-16] MEDS: FUROSEMIDE 40 MG TABLET PO SCH (09:41)
[2022-01-16] MEDS: ENSURE CLEAR 240 ML LIQUID (MIX BERRY) PO SCH ×2 (09:42→12:22)
[2022-01-16] MEDS: POTASSIUM CHLORIDE 50 ML IV SCH ×2 (09:42→12:21)
[2022-01-16 12:00] VITALS: BP 139/40
[2022-01-16 15:20] VITALS: BP 132/44
== END 2022-01-16 15:50 | DRG 377 ==
LOC: ER 05:36 → TELE3 10:34 → TELE-TD3 01-11 09:08 → TELE3 01-12 11:30
PROVIDERS: ADMIT Internal Medicine; ATTEND Internal Medicine
PROC: 30233N1 Transfusion of Nonautologous Red Blood Cells into Peripheral Vein, Percutaneous Approach (ICD-10-PCS; principal; 2022-01-07)
PROC: 05H533Z Insertion of Infusion Device into Right Subclavian Vein, Percutaneous Approach (ICD-10-PCS; 2022-01-07)
PROC: B546ZZA Ultrasonography of Right Subclavian Vein, Guidance (ICD-10-PCS; 2022-01-07)
PROC: 0DJD8ZZ Inspection of Lower Intestinal Tract, Via Natural or Artificial Opening Endoscopic (ICD-10-PCS; 2022-01-09)
PROC: 5A09357 Assistance with Respiratory Ventilation, Less than 24 Consecutive Hours, Continuous Positive Airway Pressure (ICD-10-PCS; 2022-01-11)
PROC: 0W9B3ZZ Drainage of Left Pleural Cavity, Percutaneous Approach (ICD-10-PCS; 2022-01-12)
DX: K57.31 Diverticulosis of large intestine without perforation or abscess with bleeding (principal); I50.23 Acute on chronic systolic (congestive) heart failure; J96.21 Acute and chronic respiratory failure with hypoxia; N17.0 Acute kidney failure with tubular necrosis; J96.22 Acute and chronic respiratory failure with hypercapnia; D62 Acute posthemorrhagic anemia; I42.8 Other cardiomyopathies; G91.9 Hydrocephalus, unspecified; J90 Pleural effusion, not elsewhere classified; D69.6 Thrombocytopenia, unspecified; E03.9 Hypothyroidism, unspecified; E78.5 Hyperlipidemia, unspecified; E87.6 Hypokalemia; E88.09 Other disorders of plasma-protein metabolism, not elsewhere classified; I48.0 Paroxysmal atrial fibrillation; Z86.73 Personal history of transient ischemic attack (TIA), and cerebral infarction without residual deficits; F03.90 Unspecified dementia, unspecified severity, without behavioral disturbance, psychotic disturbance, mood disturbance, and anxiety; I08.3 Combined rheumatic disorders of mitral, aortic and tricuspid valves; Z74.09 Other reduced mobility; I11.0 Hypertensive heart disease with heart failure; Z95.2 Presence of prosthetic heart valve; I25.10 Atherosclerotic heart disease of native coronary artery without angina pectoris; Z20.822 Contact with and (suspected) exposure to COVID-19; Z79.82 Long term (current) use of aspirin; K64.8 Other hemorrhoids; G93.89 Other specified disorders of brain; R13.10 Dysphagia, unspecified
CPT/HCPCS: 32555; 36415; 36600; 71045; 71250; 82378; 83550; 83605; 83615; 83735; 84100; 84443; 84484; 85018; 85025; 85730; 86850; 86900; 86901; 86920; 87086; 93005; 93307; 94660; 94760; A4663; A6213; C9113; G0378; J1940; J2060; J2250; J2270; J2405; J2543; J3480; J3490; J7040; J7042; J7070; P9016; Q9967

== ENCOUNTER 2022-04-02 13:38 | Inpatient (IN) | payer MEDICARE, OTHER ==
[~2022-04-02] VITALS: Ht 157.5 cm; Wt 41.7 kg
[~2022-04-02 13:38] MED LIST changes: -ASPI-618 PO; +ASPI81TA31 PO; -ENOX40DI SQ; -FERR325T28 PO; +FERR325T6 PO; -FURO20TA4 PO; +FURO40TA5 PO; -LACT-246 PO; -LOSA100T31 PO; +MELA5TAB PO; +METO-357 PO; -METO-358 PO; -PANT40TA49 PO; -PIPE3.379 IV
[2022-04-02] MEDS ORDERED: PANTOPRAZOLE SODIUM 40 MG VIAL IV ONE (14:00)
[2022-04-02] MEDS ORDERED: ONDANSETRON 4 MG/2 ML VIAL IV ONE (14:00)
[2022-04-02] MEDS ORDERED: IV NORMAL SALINE 500 ML BAG IV ONE (14:00)
[2022-04-02] MEDS ORDERED: LORAZEPAM 2 MG/1 ML VIAL IM ONE (14:45)
--- NOTE | 2022-04-02 16:00 | NUR ---
PICC Line placed by IV Nurse.
[2022-04-02 16:12] LABS: HEMATOCRIT 22.8 % (31.2-41.9); MEAN CORPUSCULAR HEMOGLOBIN 29.4 uug (24.7-32.8); PLATELET COUNT (AUTO) 203 K/uL (179-408)
[2022-04-02 16:20] LABS: CARBON DIOXIDE 29 mmol/L (21-32); CHLORIDE 101 mmol/L (98-107); CREATININE 0.9 mg/dL (0.6-1.3); GLUCOSE 135 mg/dL (74-106); POTASSIUM 4.3 mmol/L (3.5-5.1); UREA NITROGEN, BLOOD 31 mg/dL (7-18)
--- NOTE | 2022-04-02 16:32 | NUR ---
Pt's daughter's phone # - Miguel.
[2022-04-02] MEDS ORDERED: ONDANSETRON 4 MG/2 ML VIAL ONE (16:34)
[2022-04-02] MEDS ORDERED: PANTOPRAZOLE SODIUM 40 MG VIAL ONE (16:34)
[2022-04-02] MEDS ORDERED: ACETAMINOPHEN 325 MG TABLET PO PRN ×2 (17:15→19:00)
[2022-04-02] MEDS ORDERED: REMEDY ESSENTIAL ZINC PASTE 113 GM TP PRN (17:15)
[2022-04-02] MEDS ORDERED: MAGNESIUM HYDROXIDE 30 ML LIQUID UDC PO PRN (17:15)
[2022-04-02] MEDS ORDERED: ONDANSETRON 4 MG/2 ML VIAL IV PRN (17:15)
[2022-04-02] MEDS ORDERED: TICA90TA PO (18:16)
[2022-04-02] MEDS ORDERED: CARV6.252 PO (18:21)
[2022-04-02] MEDS ORDERED: SACU1TAB7 PO (18:25)
[2022-04-02] MEDS ORDERED: DAPA10TA PO (18:29)
[2022-04-02] MEDS ORDERED: ACID1TAB12 PO (18:32)
--- NOTE | 2022-04-02 18:34 | NUR ---
Admitted under Dr. Ruff. Level of care TELE, Room #301. No report given yet, per Tami, give report after change of shift.
[2022-04-02] MEDS ORDERED: FURO20TA4 PO (18:47)
[2022-04-02] MEDS ORDERED: NITROGLYCERIN 0.4 MG/TAB BOTTLE SL PRN (19:00)
[2022-04-02] MEDS ORDERED: DEXTROSE 50% 50 ML DISP.SYRIN IV PRN (19:00)
[2022-04-02] MEDS ORDERED: Medication Not On Formulary EA (Acidophilus/Bulgaricus (Floranex Tablet) 1 TAB) PO PRN (19:00)
[2022-04-02] MEDS ORDERED: SENNOSIDES 1 TABLET PO PRN (19:00)
[2022-04-02] MEDS ORDERED: MELATONIN 3 MG TABLET PO PRN (19:00)
[2022-04-02] MEDS ORDERED: Medication Not On Formulary EA (Melatonin 10 MG) PO SCH (21:00)
[2022-04-02] MEDS: PANTOPRAZOLE SODIUM 40 MG VIAL IV SCH (21:00)
[2022-04-02] MEDS ORDERED: Medication Not On Formulary EA (Acidophilus/Bulgaricus (Floranex Tablet) 1 EACH) PO SCH (21:00)
[2022-04-02] MEDS ORDERED: SPIRONOLACTONE 25 MG TABLET PO SCH (21:00)
[2022-04-02] MEDS: BLOOD SUGAR DIAGNOSTIC 1 EACH STRIP VI SCH (21:00)
[2022-04-02 21:05] VITALS: BP 106/32
[2022-04-02] MEDS: DONEPEZIL 5 MG TABLET PO SCH (21:07)
[2022-04-02] MEDS: ACIDOPHILUS/BULGARICUS CHEW TAB PO SCH (21:07)
--- NOTE | 2022-04-02 21:15 | NUR ---
Transfered to 3rd floor Tele via gurny with no distress noted.
--- NOTE | 2022-04-02 22:00 | NUR ---
pt hs blood sugar is 105 no signs of distress noted will continue to monitor.
[2022-04-02] MEDS: INSULIN REGULAR, HUMAN 300 UNIT/3 ML VIAL SQ PRN (22:04)
[2022-04-03 00:17] VITALS: BP 135/40
[2022-04-03 04:22] VITALS: BP 118/33
--- NOTE | 2022-04-03 06:05 | NUR ---
SHIFT NOTE: RECEIVED REPORT FROM ER NURSE SARAH PT IS ALERT AND ORIENTED X 3 PT CAME [facility]. PT C/O ABDOMINAL PAIN AND STAFF SAW LARGE BLOODY STOOL. CHECKED PT NO SIGNS OF BLOOD AND NO STOOL. PT HAS MICHAEL MIDLINE DOUBLE LUMEN NO SIGNS OF RESPIRATORY DISTRESS NOTED. PT IS ALLERGIC TO LATEX AND AMIODARONE. SHE IS ALSO A FULL CODE DENIES PAIN. PT HAS A LOW HGB. PT MONITORED EVERY 2 HOURS FOR FALLS AND SAFETY NONE NOTED. WILL ENDORSE TO AM NURSE.
[2022-04-03] MEDS: BLOOD SUGAR DIAGNOSTIC 1 EACH STRIP VI SCH ×4 (07:09→21:00)
[2022-04-03] MEDS: INSULIN REGULAR, HUMAN 300 UNIT/3 ML VIAL SQ PRN (07:10)
--- NOTE | 2022-04-03 07:11 | NUR ---
pt am blood sugar 91 no signs of diabetic reaction noted and no coverage required. will endorse to am nurse
[2022-04-03 07:39] LABS: CREATININE 0.8 mg/dL (0.6-1.3); MAGNESIUM 2.4 mg/dL (1.8-2.4); PHOSPHOROUS 3.8 mg/dL (2.5-4.9); POTASSIUM 4.3 mmol/L (3.5-5.1)
[2022-04-03 07:46] LABS: THYROID STIMULATING HORMONE 0.407 mIU/mL (0.358-3.740)
[2022-04-03 07:56] LABS: MEAN CORPUSCULAR VOLUME 87.7 fL (75.5-95.3); PLATELET COUNT (AUTO) 168 K/uL (179-408)
--- NOTE | 2022-04-03 08:00 | NUR ---
RECEIVED PATIENT IN BED AWAKE ALERT VERBALLY RESPONSIVE COOPERATE DENIES PAIN OR DISCOMFORTS AT THIS TIME .ON ROOM AIR WITH NO S/S OF SHORTNESS OF BREATH TELE IS SR MID LINE LEFT UPPER ARM IS INTACT WITH NO S/S OF INFILTERATION AT THIS TIME. CALL LIGHTS AND PERSONAL BELONGINGS ARE WITHIN EASY REACH
[2022-04-03] MEDS: FUROSEMIDE 20 MG TABLET PO SCH (08:54)
[2022-04-03] MEDS: FERROUS SULFATE 325 MG TABEC PO SCH ×2 (08:54→17:15)
[2022-04-03] MEDS: DOCUSATE SODIUM 100 MG CAPSULE PO SCH ×2 (08:54→17:15)
[2022-04-03] MEDS: PANTOPRAZOLE SODIUM 40 MG VIAL IV SCH ×3 (08:54→21:57)
[2022-04-03] MEDS: ACIDOPHILUS/BULGARICUS CHEW TAB PO SCH ×3 (08:54→21:57)
[2022-04-03] MEDS: FOLIC ACID 1 MG TABLET PO SCH (08:54)
[2022-04-03] MEDS: ASPIRIN 81 MG TAB.CHEW PO SCH (08:54)
[2022-04-03] MEDS: SACUBITRIL/VALSARTAN 24 MG-26 TABLET PO SCH ×2 (08:55→17:23)
[2022-04-03] MEDS: TICAGRELOR 90 MG TABLET PO SCH ×2 (08:55→17:23)
[2022-04-03] MEDS ORDERED: SERTRALINE HCL 50 MG TABLET PO SCH (09:00)
[2022-04-03] MEDS ORDERED: METOPROLOL SUCCINATE XL 50 MG TAB.SR.24H PO SCH (09:00)
[2022-04-03] MEDS ORDERED: CARVEDILOL 6.25 MG TABLET PO SCH (09:00)
[2022-04-03] MEDS ORDERED: Medication Not On Formulary EA (Ferrous Sulfate 325 MG) PO SCH (09:00)
--- NOTE | 2022-04-03 11:00 | NUR ---
PATIENT SEEN AND EXAMINED BY ALMA TINOCO WITH NO NEW ORDERS AT THIS TIME.
[2022-04-03 12:57] VITALS: BP 118/38
[2022-04-03 16:00] VITALS: BP 114/35
--- NOTE | 2022-04-03 16:30 | NUR ---
PATIENT PULLED OUT HER MID LINE ON HER LEFT UPPER ARM SHE IS CONFUSED AT THIS TIME AND UNABLE TO STATE WHY SHE PULLED IT OUT WILL ATTEMPT TO REINSERT LATER.
[2022-04-03] MEDS ORDERED: LOPE2CAP40 PO (19:22)
[2022-04-03] MEDS ORDERED: PANT40TA49 PO (19:22)
--- NOTE | 2022-04-03 20:20 | NUR ---
Pt refused rn cardiac. Received order from MD to discontinue Telemetry.
[2022-04-03 20:43] VITALS: BP 120/38
[2022-04-03] MEDS: DONEPEZIL 5 MG TABLET PO SCH ×2 (21:00→21:57)
--- NOTE | 2022-04-03 21:45 | NUR ---
Refused Accu check and all other medications. MD aware. Will continue to monitor.
[2022-04-03] MEDS: REMEDY ESSENTIAL ZINC PASTE 113 GM TP SCH (21:57)
[2022-04-04 04:25] VITALS: BP 127/35
[2022-04-04] MEDS: BLOOD SUGAR DIAGNOSTIC 1 EACH STRIP VI SCH ×3 (06:36→16:30)
[2022-04-04 06:42] LABS: HEMATOCRIT 25.2 % (31.2-41.9); MEAN CORPUSCULAR HEMOGLOBIN 29.4 uug (24.7-32.8); MEAN CORPUSCULAR VOLUME 88.4 fL (75.5-95.3); PLATELET COUNT (AUTO) 210 K/uL (179-408)
--- NOTE | 2022-04-04 06:55 | NUR ---
Slept intermittently. Offered water every few hours but refused only took a sip. Also refused morning Accu check. No BM during shift. No active bleeding noted. Will endorse to incoming nurse.
[2022-04-04 07:02] LABS: CARBON DIOXIDE 31 mmol/L (21-32); CHLORIDE 102 mmol/L (98-107); CREATININE 0.8 mg/dL (0.6-1.3); GLUCOSE 98 mg/dL (74-106); MAGNESIUM 2.3 mg/dL (1.8-2.4); PHOSPHOROUS 3.9 mg/dL (2.5-4.9); UREA NITROGEN, BLOOD 18 mg/dL (7-18)
[2022-04-04] MEDS: SACUBITRIL/VALSARTAN 24 MG-26 TABLET PO SCH ×2 (09:00→16:56)
[2022-04-04] MEDS: PANTOPRAZOLE SODIUM 40 MG VIAL IV SCH (09:00)
[2022-04-04] MEDS ORDERED: SPIRONOLACTONE 25 MG TABLET PO SCH (09:00)
[2022-04-04] MEDS: REMEDY ESSENTIAL ZINC PASTE 113 GM TP SCH (09:00)
[2022-04-04] MEDS: FUROSEMIDE 20 MG TABLET PO SCH (09:00)
[2022-04-04] MEDS: ACIDOPHILUS/BULGARICUS CHEW TAB PO SCH (10:01)
[2022-04-04] MEDS: DOCUSATE SODIUM 100 MG CAPSULE PO SCH ×2 (10:02→16:56)
[2022-04-04] MEDS: FOLIC ACID 1 MG TABLET PO SCH (10:02)
[2022-04-04] MEDS: ASPIRIN 81 MG TAB.CHEW PO SCH (10:02)
[2022-04-04] MEDS: TICAGRELOR 90 MG TABLET PO SCH ×2 (10:05→16:57)
[2022-04-04] MEDS: FERROUS SULFATE 325 MG TABEC PO SCH ×2 (10:06→16:56)
[2022-04-04 11:34] VITALS: BP 120/37
[2022-04-04] MEDS: ENSURE CLEAR 240 ML LIQUID (MIX BERRY) PO SCH ×2 (13:03→17:07)
[2022-04-04 15:55] VITALS: BP 113/46
--- NOTE | 2022-04-04 18:26 | NUR ---
PATIENT DISCHARGED TO LONGTERM. ALERT AND ABLE TO MAKE NEEDS KNOWN. DENIES PAIN. VITALS STABLE. 98%@RA. AMBULATED FROM BED TO [facility] WITH [facility] X1 ASSIST. REMOVED IV FROM RFA, NO S/S OF BLEEDING NOTED. INSTRUCTED PATIENT TO REPORT BLOOD IN STOOL, OR ANY S/S OF BLEEDING TO FAMILY OR YANA STAFFS. REPORT AND DOCUMENTS GIVEN TO [facility] ([facility]). DAUGHTER AWARE OF TRANSFER. DEPARTED @1827 ON STRETCHER. PETE PRICE
== END 2022-04-04 18:30 | disposition home or self-care (01) | DRG 378 ==
LOC: ER 13:41 → TELE3 18:41 → MEDSURG3 04-03 20:20
PROVIDERS: ADMIT Registered Nurse; ATTEND Nurse Practitioner Acute Care
PROC: 05H633Z Insertion of Infusion Device into Left Subclavian Vein, Percutaneous Approach (ICD-10-PCS; principal; 2022-04-02)
PROC: B547ZZA Ultrasonography of Left Subclavian Vein, Guidance (ICD-10-PCS; 2022-04-02)
DX: K92.2 Gastrointestinal hemorrhage, unspecified (principal); E44.1 Mild protein-calorie malnutrition; G91.9 Hydrocephalus, unspecified; I13.0 Hypertensive heart and chronic kidney disease with heart failure and stage 1 through stage 4 chronic kidney disease, or unspecified chronic kidney disease; I42.9 Cardiomyopathy, unspecified; I50.22 Chronic systolic (congestive) heart failure; Z68.1 Body mass index [BMI] 19.9 or less, adult; N18.9 Chronic kidney disease, unspecified; D64.9 Anemia, unspecified; E03.9 Hypothyroidism, unspecified; F03.90 Unspecified dementia, unspecified severity, without behavioral disturbance, psychotic disturbance, mood disturbance, and anxiety; G93.89 Other specified disorders of brain; K22.2 Esophageal obstruction; I25.10 Atherosclerotic heart disease of native coronary artery without angina pectoris; Z95.2 Presence of prosthetic heart valve; Z91.199 Patient's noncompliance with other medical treatment and regimen due to unspecified reason; Z95.5 Presence of coronary angioplasty implant and graft; Z20.822 Contact with and (suspected) exposure to COVID-19
CPT/HCPCS: 36415; 71045; 83735; 84100; 84443; 85025; 85730; 86850; 86900; 86901; 93005; A4663; C9113; G0378; J1815; J2405; J7040

== ENCOUNTER 2022-04-17 03:58 | Emergency (ER) | payer MEDICARE, OTHER ==
[~2022-04-17] VITALS: Ht 157.5 cm; Wt 41.7 kg
[~2022-04-17 03:58] MED LIST changes: +CARV6.252 PO; +DAPA10TA PO; +FURO20TA4 PO; -FURO40TA5 PO; +LOPE2CAP40 PO; -METO-357 PO; +PANT40TA49 PO; +SACU1TAB7 PO; -SERT50TA PO; +TICA90TA PO
--- NOTE | 2022-04-17 04:15 | NUR ---
Taken down for CT scan.
--- NOTE | 2022-04-17 04:15 | NUR ---
Refused labs. Dr. Tenorio made aware.
--- NOTE | 2022-04-17 04:15 | NUR ---
IN N OUT CATH CANCELLED BY DR. OVERTON.
--- NOTE | 2022-04-17 04:15 | NUR ---
Pt taken to CT via rapril.
--- NOTE | 2022-04-17 04:35 | NUR ---
Back from CT scan.
--- NOTE | 2022-04-17 04:46 | NUR ---
Contacted [facility] to inform them of patient's discharge, spoke to
--- NOTE | 2022-04-17 04:50 | NUR ---
Contacted [facility] for patient transfer, spoke with austin Chaparro within 60 min.
--- NOTE | 2022-04-17 06:05 | NUR ---
[facility] has arrived and report given.
--- NOTE | 2022-04-17 06:24 | NUR ---
Patient discharged to [facility] in stable condition with [facility] transport. Written and verbal after care instructions given. Ambulance verbalized understanding of instructions. Stressed follow up or return to ER for worsening s/s.
[2022-04-17 06:26] VITALS: BP 120/50
== END 2022-04-17 06:26 ==
LOC: ER 04:02
DX: S00.03XA Contusion of scalp, initial encounter (principal); W19.XXXA Unspecified fall, initial encounter; Y92.099 Unspecified place in other non-institutional residence as the place of occurrence of the external cause; E03.9 Hypothyroidism, unspecified; Z79.02 Long term (current) use of antithrombotics/antiplatelets; G93.89 Other specified disorders of brain; Z88.8 Allergy status to other drugs, medicaments and biological substances; I48.91 Unspecified atrial fibrillation; F09 Unspecified mental disorder due to known physiological condition; I87.2 Venous insufficiency (chronic) (peripheral); I50.9 Heart failure, unspecified; Z79.899 Other long term (current) drug therapy
CPT/HCPCS: 70450; 74018; A4663; C1758